=== PATIENT | female | born 1970 | race Caucasian/White ===

== ENCOUNTER 2025-08-06 11:21 | Inpatient (IN) ==
--- NOTE | 2025-08-06 12:27 | Emergency Department Note ---
Impression & Plan Palpitation, Dysrhythmia, Fatigue, Lightheadedness ED Provider Note ED Provider Note NAME: BEATA MARTIN AGE:55 SEX: Female : 1970 ARRIVES VIA: EMS INFORMANT: Patient ED PROVIDER(s): Kavitha Field DO CHIEF COMPLAINT: Palpitations, weakness HPI: This is a 55-year-old female who presents to the emergency department due to concern for palpitations. Patient states around 9:00 this morning she was seated and reading a book and she began with weakness, lightheadedness, and a sense of palpitations. Patient states she has not felt well since being given steroids 2 weeks ago by orthopedics due to some ongoing issues in her left upper extremity. Patient with significant cardiac history. EMS reported variable heart rate improved including as low as 38. PAST MEDICAL HISTORY:See Below PAST SURGICAL HISTORY:See Below FAMILY HISTORY:See Below SOCIAL HISTORY:See Below HOME MEDICATIONS:See Below ALLERGIES:See Below VITALS:See Below PHYSICAL EXAMINATION: GENERAL: alert, unwell appearing, well nourished, no distress, non-toxic EYE EXAM: normal conjunctiva, PERRL and EOM's grossly intact OROPHARYNX: no exudate, no erythema, lips, buccal mucosa, and tongue normal and mucous membranes are moist NECK: supple, no nuchal rigidity, no adenopathy, non-tender LUNGS: Clear to auscultation. Normal chest wall mechanics, no w/r/r HEART: no murmurs, S1 normal and S2 normal, well-healed midline sternotomy scar ABDOMEN: abdomen soft, non-tender, normo-active bowel sounds, no masses, no rebound or guarding. SKIN: no rashes, petechiae, orbruising UPPER EXTREMITIES: upper extremities are grossly normal. FROM, nml pulses b/l. LOWER EXTREMITIES: No pitting edema. FROM, nml pulses b/l. NEURO EXAM: Normal sensorium, cranial nerves II-XII grossly intact, normal speech, no facial droop,nogross weakness of arms, no gross weakness of legs. Gross sensation intact. No ataxia. Vital Signs: reviewed and remarkable Differential Diagnosis: Dysrhythmia, PVCs, PACs, electrolyte abnormality, thyroid storm, ACS, PE, dehydration, anxiety, medication ADR, occult infection, as well as others were considered MEDICAL DECISION MAKIN-year-old female who presents to the emergency department due to concern for palpitations, lightheadedness, and fatigue. Patient noted by EMS to have variable heart rate including significant bradycardia. No hypotension and route. On arrival here patient is rhythm with stable vital signs. While initially discussing patient's symptoms, patient noted to drop her heart rate to 40 and what appeared to be a type II second-degree block. Patient with significant cardiac history. Labs drawn and sent, IV established, EKG and chest performed at bedside and interpreted by me and the patient was monitored on telemetry. Patient applied precaution due to coming bradycardia. Patient remained normotensive. She would become symptomatic with the bradycardia though. Case discussed with on-call [facility] cardiology. They did review patient's EKG and telemetry tracings. Patient's labs reassuring including therapeutic INR. Patient's TSH abnormal although she states that is not new. Upon review of prior cardiology note, there was some consideration that the thyroid dysfunction was secondary to her prior amiodarone use. Other than the recent steroids as prescribed by orthopedics, no other recent change in medications. Patient does take atenolol daily. Patient was noted to have a magnesium of 1.8, well within normal limits, she was given additional magnesium supplementation as a precaution. Patient had no other concerning dysrhythmias while monitored here. No evidence of infectious etiology. Case discussed with the hospitalist team for additional evaluation and management. Patient reevaluated multiple times, multiple EKGs obtained and reviewed by me at bedside additionally due to concerning rate and rhythm changes. Consultation(s): 1235: Discussed with Dr. Sunshine, cardiology, who reviewed her tele tracings and prior history. 1433: Discussed with [facility] hospitalist team, for further evaluation and mgmt. ER Treatment Provided: See below Diagnostics Interpreted By Me: -ECG: Normal sinus rhythm at 80, normal axis, left bundle branch block, no acute ST/T wave changes -Cardiac Monitoring: An order was placed for continuous cardiac monitoring. The monitor shows a rate of 40 with bradycardic rhythm. -Laboratory studies: As stated above and show below. -Imaging studies: X-ray Chest: A single view study of the chest was reviewed and was negative for cardiomegaly, focal infiltrate, effusion, pulmonary edema, or wide mediastinum. Triage Nursing Note Reviewed Prior/Outside Records Reviewed -cardiology note with Dr. Anand from December 2024 reviewed Critical Care: Critical care of 48 min performed to assess and manage high likelihood of life-threatening dysrhythmia, involving labs and imaging performed with assessment to evaluate dysrhythmia and palpitations diagnosis with frequent reassessment. This time includes bedside time, treatment discussions with patient/family/consultants, documentation time and excludes procedure time. Past Med/Surg History Problem List (Updated 08/06/25 @ 18:51 by Kavitha Field DO) Lightheadedness (Acute) Fatigue (Acute) CHF (congestive heart failure) Valvular heart disease 2008 Mitral Valve Repair. 2016 Mitral Valve Replacement, Tricuspid Valve Ring Repair. 2019 Tricuspid Valve Replacement Symptomatic bradycardia Dysrhythmia (Acute) Palpitation (Acute) Anticoagulated (Acute) Failure of outpatient treatment (Acute) Dental infection (Acute Unknown) Cellulitis of face (Acute) Facial cellulitis Dental infection Medical History Encounter for pre-operative examination Valvular heart disease 2008 Mitral Valve Repair. 2016 Mitral Valve Replacement, Tricuspid Valve Ring Repair. 2019 Tricuspid Valve Replacement Restrictive lung disease Pulmonary hypertension PTSD (post-traumatic stress disorder) HTN (hypertension) Anxiety Nonalcoholic fatty liver disease Diaphragmatic paralysis Chronic insomnia CHF (congestive heart failure) Surgical History History of incision and drainage (04/05/25) Right Jaw Incision and Drainage - Jamie Villafana, DMD Extraction Tooth #28 - Jamie Villafana, DMD H/O mitral valve repair H/O tricuspid valve replacement H/O mitral valve replacement Social History Smoking Status: Never smoker Hx Alcohol Use: Yes Alcohol type: other Hx Substance Use: No Preferred Language: Romansh Communication Ability: Effective Supervisor [place] [employer] [place] Required: No Beliefs That Will Affect Care: None Current Living Situation: Spouse and Family current occupation: Disability Feels Safe at Home: Yes Safety Concerns: Feels Safe At This Time Assistive Devices: None Allergies Allergies Allergy/AdvReac Type Severity Reaction Status Date / Time levofloxacin [From Levaquin] Allergy Severe Anaphylaxis Verified 05/10/25 16:22 heparin AdvReac Severe HIGH Verified 05/10/25 16:22 DOSES---COMA doxycycline AdvReac Intermediate CAUSED Verified 05/10/25 16:22 ULCER TO BLEED tizanidine AdvReac Intermediate HALLUCINATI Verified 05/10/25 16:22 ONS fentanyl AdvReac Unknown "DID NOT Verified 05/10/25 16:22 WORK" midazolam [From Versed] AdvReac Unknown "DID NOT Verified 05/10/25 16:22 WORK" ketorolac [From Toradol] AdvReac Abdominal Verified 05/10/25 16:22 Pain Home Meds Home Medications Medication Instructions Recorded Confirmed alprazolam 1 mg tablet 1 mg PO BID PRN Anxiety 04/02/25 08/06/25 atenolol 50 mg tablet 75 mg PO DAILY 04/02/25 08/06/25 estradiol 2 mg tablet 2 mg PO DAILY 04/02/25 08/06/25 furosemide 20 mg tablet 20 mg PO DAILY 04/02/25 08/06/25 losartan 25 mg tablet 0 mg PO DAILY 04/02/25 08/06/25 meclizine 25 mg tablet 25 mg PO BID PRN Dizziness Or 04/02/25 08/06/25 Vertigo pantoprazole 40 mg tablet,delayed 40 mg PO DAILY 04/02/25 08/06/25 release ranolazine 500 mg tablet,extended 500 mg PO BID 04/02/25 08/06/25 release,12 hr spironolactone 25 mg tablet 50 mg PO DAILY 04/02/25 08/06/25 warfarin 2.5 mg tablet 2.5 mg PO HS 04/02/25 08/06/25 zolpidem 5 mg tablet 5 mg PO HS 04/02/25 08/06/25 ferrous sulfate 325 mg (65 mg 325 mg PO DAILY 05/10/25 08/06/25 iron) tablet,delayed release multivitamin 1 tab PO DAILY 05/10/25 08/06/25 levothyroxine 25 mcg tablet 25 mcg PO DAILY 08/06/25 08/06/25 (Euthyrox) Previous Rx's Medication Instructions Recorded naloxone 4 mg/actuation nasal 1 spray intranasal ONCE #2 ea 04/09/25 spray (Narcan) promethazine 25 mg tablet 25 mg PO TID PRN nausea and 05/10/25 vomiting #9 tabs Results & Data (ED) Vital Signs Vital Signs - 24 hr 08/06/25 11:34 08/06/25 11:34 08/06/25 11:45 Temperature 36.7 C Temperature Source Oral Pulse Rate 47 L 69 Pulse Rate [Apical] Pulse Rate from SpO2 Sensor 78 Pulse Rhythm Irregular Respiratory Rate 12 Blood Pressure 128/50 L Blood Pressure [Right Arm] Blood Pressure Mean 76 Blood Pressure Mean [Right Arm] Pulse Oximetry 96 96 Oxygen Delivery Method Room Air Room Air Room Air Sepsis New/Unexplained Change in Mental Status No Sepsis Action Taken by Nursing No Action Required 08/06/25 11:55 08/06/25 12:00 08/06/25 12:02 Temperature Temperature Source Pulse Rate 40 L Pulse Rate [Apical] Pulse Rate from SpO2 Sensor Pulse Rhythm Respiratory Rate Blood Pressure 111/62 Blood Pressure [Right Arm] Blood Pressure Mean 72 Blood Pressure Mean [Right Arm] Pulse Oximetry Oxygen Delivery Method Room Air Sepsis New/Unexplained Change in Mental Status Sepsis Action Taken by Nursing 08/06/25 12:03 08/06/25 12:32 08/06/25 12:42 Temperature Temperature Source Pulse Rate 40 L 40 L Pulse Rate [Apical] 40 L Pulse Rate from SpO2 Sensor Pulse Rhythm Respiratory Rate 15 12 Blood Pressure Blood Pressure [Right Arm] 130/62 Blood Pressure Mean Blood Pressure Mean [Right Arm] 84 Pulse Oximetry Oxygen Delivery Method Room Air Sepsis New/Unexplained Change in Mental Status Sepsis Action Taken by Nursing 08/06/25 13:00 08/06/25 13:01 08/06/25 13:12 Temperature Temperature Source Pulse Rate 40 L 79 Pulse Rate [Apical] Pulse Rate from SpO2 Sensor Pulse Rhythm Respiratory Rate 12 14 Blood Pressure 126/47 L Blood Pressure [Right Arm] Blood Pressure Mean 69 Blood Pressure Mean [Right Arm] Pulse Oximetry Oxygen Delivery Method Sepsis New/Unexplained Change in Mental Status Sepsis Action Taken by Nursing 08/06/25 13:31 08/06/25 14:00 08/06/25 14:00 Temperature Temperature Source Pulse Rate 73 81 Pulse Rate [Apical] Pulse Rate from SpO2 Sensor Pulse Rhythm Respiratory Rate 18 14 Blood Pressure 118/66 126/53 L Blood Pressure [Right Arm] Blood Pressure Mean 97 89 Blood Pressure Mean [Right Arm] Pulse Oximetry Oxygen Delivery Method Room Air Sepsis New/Unexplained Change in Mental Status Sepsis Action Taken by Nursing 08/06/25 14:27 08/06/25 14:30 08/06/25 14:36 Temperature Temperature Source Pulse Rate 81 81 Pulse Rate [Apical] Pulse Rate from SpO2 Sensor Pulse Rhythm Respiratory Rate 15 13 Blood Pressure 105/58 L Blood Pressure [Right Arm] Blood Pressure Mean 84 Blood Pressure Mean [Right Arm] Pulse Oximetry Oxygen Delivery Method Sepsis New/Unexplained Change in Mental Status Sepsis Action Taken by Nursing 08/06/25 15:00 08/06/25 15:00 Temperature Temperature Source Pulse Rate 80 Pulse Rate [Apical] Pulse Rate from SpO2 Sensor Pulse Rhythm Respiratory Rate 29 H Blood Pressure 137/71 Blood Pressure [Right Arm] Blood Pressure Mean 108 Blood Pressure Mean [Right Arm] Pulse Oximetry Oxygen Delivery Method Sepsis New/Unexplained Change in Mental Status Sepsis Action Taken by Nursing Laboratory Data 08/06/25 12:38 08/06/25 12:38 Lab Results 08/06/25 08/06/25 Range/Units 12:38 13:45 WBC 5.78 (4.8-10.8) K/ul RBC 3.55 L (4.20-5.40) M/uL Hgb 11.0 L (12.0-16.0) g/dl Hct 33.1 L (37.0-47.0) % MCV 93.2 (80.0-100.0) fL MCH 31.0 (25.0-34.0) pg MCHC 33.2 (32.0-36.0) g/dL RDW Std Deviation 52.4 H (36.4-46.3) fL RDW Coeff of Ankit 15.3 H (11.5-14.5) % Plt Count 291 (130-400) K/uL MPV 11.0 (9.4-12.4) fL Immature Gran % (Auto) 0.3 % Neut % (Auto) 55.6 % Lymph % (Auto) 32.7 % [place] % (Auto) 7.4 % Eos % (Auto) 3.1 % Baso % (Auto) 0.9 % Neut # (Auto) 3.21 (1.40-6.50) K/uL Lymph # (Auto) 1.89 (1.20-3.40) K/uL [place]iken # (Auto) 0.43 (0.11-0.59) K/uL Eos # (Auto) 0.18 (0.00-0.50) K/uL Baso # (Auto) 0.05 (0.00-0.20) K/uL Immature Gran # (Auto) 0.02 (0.01-0.20) K/uL PT 26.3 H (9.0-12.0) Seconds INR 2.6 H (0.9-1.1) Sodium 138 (136-145) mmol/L Potassium 4.3 (3.5-5.1) mmol/L Chloride 106 (98-107) mmol/L Carbon Dioxide 27 (21-32) mmol/L Anion Gap 5 (3-11) BUN 17 (6-23) mg/dl Creatinine 0.84 (0.6-1.2) mg/dl Est Cr Clr Drug Dosing 76.1 ml/min eGFR 82.01 BUN/Creatinine Ratio 20.2 H (10-20) Glucose 100 H (70-99(Fasting)) mg/dl Calcium 8.9 (8.6-10.3) mg/dl Magnesium 1.8 (1.7-2.4) mg/dl Total Bilirubin 0.5 (0.2-1.0) mg/dl AST 17 (13-39) U/L ALT 12 (7-52) U/L Alkaline Phosphatase 121 H (34-104) U/L Troponin I High Sens 7.9 (0-14) pg/ml B-Natriuretic Peptide 116 H (0-100) pg/ml Total Protein 6.8 (6.0-8.3) gm/dl Albumin 3.7 (3.4-5.0) gm/dl Globulin 3.1 (2.5-4.0) gm/dl Albumin/Globulin Ratio 1.2 (0.9-2) Lipase 32 (11-82) U/L TSH 24.666 H (0.300-4.500) uIu/ml Free T4 0.61 (0.61-1.60) ng/dl Urine Color Dark Yellow Urine Appearance Cloudy A (Clear) Urine pH 6.0 (4.5-7.5) Ur Specific [place] 1.027 (1.000-1.030) Urine Protein Trace H (Negative) Urine Glucose (UA) Negative (Negative) Urine Ketones Trace H (Negative) Urine Blood Negative (Negative) Urine Nitrite Negative (Negative) Urine Bilirubin 1+ H (Negative) Urine Urobilinogen Negative (Negative) Ur Leukocyte Esterase 1+ H (Negative) Urine WBC (Auto) 6-10 H (0-5) /hpf Urine RBC (Auto) 0-2 (0-2) /hpf U Hyaline Cast (Auto) 0-2 (0-2) /lpf U Epithel Cells (Auto) >20 H (0-2) /hpf Urine Bacteria (Auto) 4+ H (None Seen) Urine Comment Anaplasma Smear See Comment Babesia Smear See Comment Lyme Disease Screen Negative (Negative) Administered Medications Discontinued Medications Alprazolam (Alprazolam 0.5 Mg Tablet) 1 mg PO NOW STA Stop: 08/06/25 14:30 Last Admin: 08/06/25 14:43 Dose: 1 mg Documented By: CHELSIE Magnesium Sulfate/Dextrose (Magnesium Sulfate / D5w) 1 gm in 100 mls @ 100 mls/hr IV NOW STA Stop: 08/06/25 14:28 Last Infusion: 08/06/25 14:43 Dose: Infused Documented By: Admin: 08/06/25 13:43 Dose: 100 mls/hr Documented By: CHELSIE Imaging Data Radiologist's Impression: Chest X-Ray 08/06/25 11:45 Clinical History: Chest pain Technique: A frontal view of the chest was obtained Comparison is made to the prior examination dated 04/02/2025 Findings: There are no confluent pulmonary infiltrates. The heart size is within normal limits. No pleural effusion or pneumothorax is seen. There is no definite pulmonary nodule. No fracture is noted. Sternal wires are present Impression: No active disease Electronically signed by Ko Givens 08-06-2025 12:53 PM Discharge Plan Visit Data Chief Complaint: Cardiac Assessment Stated Complaint: BRADYCARDIA, WEAK, DIZZY, LIGHTHEADED ED Provider: Kavitha Field Discharge Problem: Palpitation, Dysrhythmia, Fatigue, Lightheadedness Patient Disposition: Admitted As Inpatient Condition: Fair Discharge Instructions Interventions: ED Discharge Assessment Last Done: 08/06/25 16:02
--- NOTE | 2025-08-06 12:54 | XRay Report ---
Clinical History: Chest pain Technique: A frontal view of the chest was obtained Comparison is made to the prior examination dated 04/02/2025 Findings: There are no confluent pulmonary infiltrates. The heart size is within normal limits. No pleural effusion or pneumothorax is seen. There is no definite pulmonary nodule. No fracture is noted. Sternal wires are present Impression: No active disease Electronically signed by Ko Givens 08-06-2025 12:53 PM
[2025-08-06 12:55] LABS: Hematocrit (blood only) 33.1 % (37.0-47.0); Hemoglobin 11.0 g/dl (12.0-16.0); Immature Granulocytes # (auto) 0.02 K/uL (0.01-0.20); Immature Granulocytes % (auto) 0.3 %; Mean Corpuscular Hemoglobin 31.0 pg (25.0-34.0); Mean Corpuscular Volume 93.2 fL (80.0-100.0); Platelet Count 291 K/uL (130-400); RDW Standard Deviation 52.4 fL (36.4-46.3); Red Blood Count 3.55 M/uL (4.20-5.40); White Blood Count 5.78 K/ul (4.8-10.8)
[2025-08-06 13:14] LABS: Alanine Aminotransferase 12.0 U/L (7-52); Albumin Globulin Ratio 1.2 (0.9-2); Alkaline Phosphatase 121.0 U/L (34-104); Anion Gap 5.0 (3-11); Bilirubin,Total 0.5 mg/dl (0.2-1.0); Blood Urea Nitrogen 17.0 mg/dl (6-23); Calcium 8.9 mg/dl (8.6-10.3); Carbon Dioxide 27.0 mmol/L (21-32); Chloride 106.0 mmol/L (98-107); Creatinine Clr Calc Pharmacy 76.1 ml/min; Globulin 3.1 gm/dl (2.5-4.0); Glucose 100.0 mg/dl (70-99(Fasting)); Lipase 32.0 U/L (11-82); Magnesium 1.8 mg/dl (1.7-2.4); Potassium 4.3 mmol/L (3.5-5.1); Sodium 138.0 mmol/L (136-145); Total Protein 6.8 gm/dl (6.0-8.3)
[2025-08-06 13:25] LABS: INR 2.6 (0.9-1.1); Prothrombin Time 26.3 Seconds (9.0-12.0)
[2025-08-06 13:30] LABS: Thyroid Stimulating Hormone 24.666 uIu/ml (0.300-4.500)
[2025-08-06] MEDS: MAGNESIUM SULFATE / D5W 1 GM/100 ML BAG IV STA (13:43)
--- NOTE | 2025-08-06 14:17 | History & Physical Report ---
Date of Service August 06, 2025 Assessment & Plan (1) Symptomatic bradycardia: (2) Valvular heart disease: (3) CHF (congestive heart failure): Plan This patient is a 55-year-old female with PMH of CHF, valvular heart disease and restrictive lung disease who presented on 08/06 after developing symptomatic bradycardia. #Symptomatic bradycardia No leukocytosis; afebrile Lyme negative on arrival; anaplasmosis and babesiosis pending Hold atenolol for washout External pacers at bedside Magnesium sulfate 1 g IV x 1 Keep mag >2, K >4 Cardiology consult appreciated Will make patient n.p.o. at midnight in the event that she requires a pacemaker Atropine 1 mg IV q5m PRN for symptomatic bradycardia (3 max doses) Communication order for nursing staff: Do not give atropine before contacting medical provider #Valvular Heart Disease Dyspnea at baseline due to prematurity, RLD, congenital heart anomalies Hx of mitral and tricuspid valve replacements now on Warfarin INR at 2.6 on arrival (goal range 2.5-3.5) Continue warfarin daily Trend PT/INR #HFpEF No echocardiogram on file However, review of cardiology report from December 2024 reported the following: " Previously followed with cardiology in [place]" "Had a right and left heart catheterization in [facility] in 2019 prior to her tricuspid valve replacement" "Ejection action was 60% at that time" "Echo we did this past week shows a severely narrowed LV outflow tract due to upper septum which measures approximately 1.5 cm and protrudes into the LV outflow tract BNP mildly elevated at 116 on arrival (most recently 213 in August 17) CXR without signs of active disease Limited echocardiogram ordered, pending Continue spironolactone, Lasix, losartan, and ranolazine Strict I&O monitoring Daily weights #Asymptomatic bacteria UA positive on arrival with 4+ bacteria >20 epithelial cells; ? Contaminated Clinically, patient denies burning with urination, dysuria, or any urinary symptoms Will defer antibiotics at this time Follow UCx #Hypothyroidism TSH elevated at 24 on arrival, low normal free T4 Thought to be secondary to recent amiodarone use leading to thyroid dysfunction Amiodarone has since been discontinued Continue levothyroxine #Insomnia | PTSD Continue zolpidem HS Disposition: Admit to PCU telemetry VTE PPx: SCDs; will hold chemical DVT PPx in the event that patient requires a pacemaker History of Present Illness Chief Complaint: Cardiac assessment, symptomatic bradycardia Primary Care Provider: Casie Link PA-C Mrs. Hancock is a 55-year-old female with PMH of valvular heart disease (on warfarin), pulmonary hypertension, CHF, restrictive lung disease, NAFLD, insomnia, and PTSD. Extensive cardiac history including valvular surgeries completed in [place] and most recently in November 2024 at the [facility]. She presented on 08/06 after feeling intermittent chest palpitations followed by lightheadedness while at rest around 0900 this morning. When she checked her home pulse ox, it was reportedly 38 bpm. While she has had intermittent episodes of decreased energy over the past 2 weeks, this is the lowest her heart rate has been. Patient denies prior history of ID or diabetes. While she denies history of stroke, she does report history of "small hemorrhages" in her brain secondary to her heart. Patient did not take her regular morning medications today. The only recent change in medication is that she was started on a Medrol Dosepak 2 weeks ago for her left shoulder pain. She believes that the Medrol Dosepak is the primary cause of her symptoms, as it has messed up her INR, and her heart rate has felt abnormal ever since starting it. No sick contacts to her knowledge. No rashes or tick bites to her knowledge. Patient follows with Dr. Downing ([facility]) as an outpatient. Patient's vitals are stable at time of admission. ED course: Magnesium sulfate 1 g IV x 1 Xanax 1 mg p.o. ROS: Patient endorses night sweats, intermittent chest palpitations, decreased energy, SOB (patient reports she has "no energy" to breathing when her heart rate is low), dry cough, intermittent numbness and tingling in the left hand, and left-sided shoulder pain radiating down to the hand. Patient denies fevers chest pain, chest palpitations, N/V/D, burning with urination, blood in your stool, or changes in urinary/bowel habits. Allergies Allergy/AdvReac Type Severity Reaction Status Date / Time levofloxacin [From Levaquin] Allergy Severe Anaphylaxis Verified 05/10/25 16:22 heparin AdvReac Severe HIGH Verified 05/10/25 16:22 DOSES---COMA doxycycline AdvReac Intermediate CAUSED Verified 05/10/25 16:22 ULCER TO BLEED tizanidine AdvReac Intermediate HALLUCINATI Verified 05/10/25 16:22 ONS fentanyl AdvReac Unknown "DID NOT Verified 05/10/25 16:22 WORK" midazolam [From Versed] AdvReac Unknown "DID NOT Verified 05/10/25 16:22 WORK" ketorolac [From Toradol] AdvReac Abdominal Verified 05/10/25 16:22 Pain Home Medications Medication Instructions Recorded Confirmed Type alprazolam 1 mg tablet 1 mg PO BID PRN Anxiety 04/02/25 08/06/25 History estradiol 2 mg tablet 2 mg PO DAILY 04/02/25 08/06/25 History furosemide 20 mg tablet 20 mg PO DAILY 04/02/25 08/06/25 History meclizine 25 mg tablet 25 mg PO BID PRN Dizziness Or 04/02/25 08/06/25 History Vertigo pantoprazole 40 mg tablet,delayed 40 mg PO DAILY 04/02/25 08/06/25 History release spironolactone 25 mg tablet 50 mg PO DAILY 04/02/25 08/06/25 History warfarin 2.5 mg tablet 2.5 mg PO HS 04/02/25 08/06/25 History zolpidem 5 mg tablet 5 mg PO HS 04/02/25 08/06/25 History naloxone 4 mg/actuation nasal 1 spray intranasal ONCE #2 ea 04/09/25 08/06/25 Rx spray (Narcan) multivitamin 1 tab PO DAILY 05/10/25 08/06/25 History promethazine 25 mg tablet 25 mg PO TID PRN nausea and 05/10/25 08/06/25 Rx vomiting #9 tabs levothyroxine 25 mcg tablet 25 mcg PO DAILY 08/06/25 08/06/25 History (Euthyrox) baclofen 5 mg tablet 5 mg PO Q8H PRN muscle 08/09/25 Rx spasm/muscle pain #14 tabs cyanocobalamin (vitamin B-12) 1,000 mcg PO DAILY #90 tabs 08/09/25 Rx 1,000 mcg tablet losartan 25 mg tablet 25 mg PO DAILY #0 tabs 08/09/25 08/06/25 Rx Past Med/Surg History Problem List (Updated 08/09/25 @ 07:54 by Livier Downing, DO) LBBB (left bundle branch block) Hypothyroidism Left arm pain Anemia Atrial flutter Atrial tachycardia AVB (atrioventricular block) Lightheadedness (Acute) Fatigue (Acute) CHF (congestive heart failure) Valvular heart disease 2008 Mitral Valve Repair. 2016 Mitral Valve Replacement, Tricuspid Valve Ring Repair. 2019 Tricuspid Valve Replacement Symptomatic bradycardia Dysrhythmia (Acute) Palpitation (Acute) Anticoagulated (Acute) Failure of outpatient treatment (Acute) Dental infection (Acute Unknown) Cellulitis of face (Acute) Facial cellulitis Dental infection Medical History Encounter for pre-operative examination Restrictive lung disease Pulmonary hypertension PTSD (post-traumatic stress disorder) HTN (hypertension) Anxiety Nonalcoholic fatty liver disease Diaphragmatic paralysis Chronic insomnia Surgical History History of incision and drainage (04/05/25) Right Jaw Incision and Drainage - Jamie Villafana DMD Extraction Tooth #28 - Jamie Villafana DMD H/O mitral valve repair H/O tricuspid valve replacement H/O mitral valve replacement Social History Smoking Status: Never smoker Hx Alcohol Use: Yes Alcohol type: other Hx Substance Use: No Preferred Language: Tajik Communication Ability: Effective Outlet Manager Required: No Beliefs That Will Affect Care: None Current Living Situation: Spouse and Family current occupation: Disability Feels Safe at Home: Yes Assistive Devices: Cane, Wheelchair and Other Review of Systems 2 Review of Systems: See HPI above Physical Exam 2 Physical Exam: General: no acute distress; anxious; at bedside; non-toxic appearing; well-nourished; cooperative; SpO2 96% on RA HEENT: normocephalic, atraumatic; no scleral icterus; PERRLA w/ EOMs intact; vision and hearing grossly intact Neck: supple; no lymphadenopathy; trachea midline Skin: No rashes or tick bites appreciated on the abdomen or flanks bilaterally; warm, dry without signs of tenting; no cyanosis; no bruising, lesions, or erythema noted CV: chest wall NTP; RRR at 80 bpm; mitral valve click appreciated; pulses intact and symmetric at radial, DP, and PT Lungs: no acute respiratory distress; symmetrical chest wall expansion; clear breath sounds across all lung maxwell w/o adventitious sounds; no wheezing ABD: Soft, NTP; BS present; no rebound/guarding; no distention MSK: no tics or fasciculations; no edema noted in the LEs b/l, nonerythematous Neuro: A&Ox3; normal mood and affect; fluent speech; no focal deficits; sensation grossly intact in the LEs b/l Results & Data Results & Data Vital Signs (Past 12 Hours) Vital Signs Temp Pulse Pulse Resp BP BP Pulse Ox 08/06/25 14:00 126/53 L 08/06/25 14:00 81 14 08/06/25 13:31 73 18 118/66 08/06/25 13:12 79 14 08/06/25 13:01 126/47 L 08/06/25 13:00 40 L 12 08/06/25 12:42 40 L 12 08/06/25 12:32 40 L 15 130/62 08/06/25 12:03 40 L 08/06/25 12:02 40 L 08/06/25 12:00 111/62 08/06/25 11:55 08/06/25 11:45 69 96 08/06/25 11:34 08/06/25 11:34 36.7 C 47 L 12 128/50 L 96 O2 Del Method 08/06/25 14:00 08/06/25 14:00 08/06/25 13:31 Room Air 08/06/25 13:12 08/06/25 13:01 08/06/25 13:00 08/06/25 12:42 08/06/25 12:32 Room Air 08/06/25 12:03 08/06/25 12:02 08/06/25 12:00 08/06/25 11:55 Room Air 08/06/25 11:45 Room Air 08/06/25 11:34 Room Air 08/06/25 11:34 Room Air Laboratory Results Abnormal lab results 08/06/25 Range/Units 12:38 RBC 3.55 L (4.20-5.40) M/uL Hgb 11.0 L (12.0-16.0) g/dl Hct 33.1 L (37.0-47.0) % RDW Std Deviation 52.4 H (36.4-46.3) fL RDW Coeff of Ankit 15.3 H (11.5-14.5) % PT 26.3 H (9.0-12.0) Seconds INR 2.6 H (0.9-1.1) BUN/Creatinine Ratio 20.2 H (10-20) Glucose 100 H (70-99(Fasting)) mg/dl Alkaline Phosphatase 121 H (34-104) U/L B-Natriuretic Peptide 116 H (0-100) pg/ml TSH 24.666 H (0.300-4.500) uIu/ml Diagnostic Findings Chest X-Ray 08/06/25 11:45 Clinical History: Chest pain Technique: A frontal view of the chest was obtained Comparison is made to the prior examination dated 04/02/2025 Findings: There are no confluent pulmonary infiltrates. The heart size is within normal limits. No pleural effusion or pneumothorax is seen. There is no definite pulmonary nodule. No fracture is noted. Sternal wires are present Impression: No active disease Electronically signed by Ko Givens 08-06-2025 12:53 PM ECG Additional Comments: ECG revealed undetermined rhythm at 60 bpm; QTc 504 (caution use of QT prolonging agents); LBBB which was present on prior EKGs ECG and route revealed undetermined rhythm at 39 bpm (see photo below) Code Status & VTE Plan Code Status DNR/DNI (discussed with patient and patient's at bedside; patient would not want to be indicated under any circumstances; while she is okay having her heart shocked if she goes into an irregular rhythm, she would not want resuscitation in the event of cardiac arrest; no mechanical ventilation under any circumstance) VTE Prophylaxis Plan VTE Prophylaxis will be ordered: Yes Supervising Physician Co-Signing Physician Notes Attending Attestation & Admit Note: Pt seen & examined, chart reviewed, admit care plan d/w YURY Rg. I agree w/ the alvarenga components of his admission documentation. 55yo female with h/o valvular heart disease (TV and MV replacements - latter mechanical, on coumadin), pulmonary hypertension, restrictive lung disease, NAFLD, insomnia, and PTSD. Has had 4 cardiac surgeries including valvular surgeries in [place] and most recently in November 2024 at the [facility]. Presented with intermittent chest palpitations followed by lightheadedness the am of admission. When she checked her home pulse ox it showed a HR of 38 BPM. EMS was summoned to her home and she was brought to [facility]. EKG done by EMS and heart rhythm upon ER presentation appeared to show junctional rhythm at rate of 40 BPM. By the time I saw her on the telemetry floor her HR had risen to the low 80s and it appeared to be aflutter. She reported feeling better after having received IV magnesium in the ER. PMH/PSH/allergies/meds/sochx - reviewed VSS, afebrile gen - lying comfortably in bed, NAD neck - no JVD mouth - MMM heart - regular rate, s1 s2, mechanical valve closure sound, no murmur lungs - CTA b/l abd - soft NT ND BS+ ext - warm, pulses 2+ b/l feet, no edema psych - a/o x 3 labs reviewed troponin negative CXR negative EKG - aflutter with variable block, LBBB TSH elevated at 24, FT4 0.6 INR 2.6 A/P: 1. symptomatic bradycardia 2nd to junctional rhythm 2. aflutter 3. valvular heart disease - s/p mechanical MV, s/p bioprosthetic TV 4. chronic LBBB 5. hypothyroidism - likely due to previous amiodarone usage 6. chronic coumadin use for mechanical MV 7. chronic fatigue -hold atenolol -strongly encouraged to take synthroid replacement -TSH has worsened in the last several months -consult cardiology, Dr Stone; I sent him a photo of the EKG done by EMS; need for pacer given the junctional rhythm? -cont coumadin; daily INR Juliano Cha MD PG Care Time/CCT Total # of Minutes Spent Total Time Spent with Patient: Total time spent is greater than 50% in coordination of care (as documented) at patient's floor/unit and/or counseling patient: C[place] [address] INT INP/OBS CARE 3/75MIN Patient Type Established Medical Decision Making High Complexity Diagnoses Symptomatic bradycardia R00.1 Valvular heart disease I38 CHF (congestive heart failure) I50.9
[2025-08-06 14:22] LABS: Appearance Urine Cloudy (Clear); Bacteria Urine Automated 4+ (None Seen); Cast Urine Automated 0-2 /lpf (0-2); Epithelial Cell Urine Auto >20 /hpf (0-2); Glucose Urine UA Negative (Negative); RBC Urine Automated 0-2 /hpf (0-2)
[2025-08-06] MEDS ORDERED: MELATONIN 3 MG TAB PO PRN (17:31)
[2025-08-06] MEDS ORDERED: ATROPINE SO4 1 MG/ML 1ML VIAL IV PRN (17:31)
[2025-08-06] MEDS ORDERED: PROMETHAZINE HCL 25 MG TAB PO PRN (17:31)
[2025-08-06] MEDS ORDERED: MECLIZINE HCL 25 MG TAB PO PRN (17:31)
[2025-08-06] MEDS: RANOLAZINE 500 MG ER TAB PO SCH (20:13)
[2025-08-06] MEDS: WARFARIN SOD 2.5 MG TAB PO SCH (20:13)
[2025-08-06] MEDS: ZOLPIDEM TARTRATE 5 MG TAB PO SCH (20:13)
[2025-08-07] MEDS: LEVOTHYROXINE SODIUM 25 MCG TABLET PO SCH (05:27)
--- NOTE | 2025-08-07 07:17 | Hospitalist Progress Note ---
Date of Service August 07, 2025 Assessment & Plan (1) Symptomatic bradycardia: (2) Valvular heart disease: (3) CHF (congestive heart failure): Plan This patient is a 55-year-old female with PMH of CHF, valvular heart disease and restrictive lung disease who presented on 08/06 after developing symptomatic bradycardia. #Symptomatic bradycardia No leukocytosis; afebrile Lyme negative on arrival; anaplasmosis and babesiosis pending Hold atenolol for washout External pacers at bedside Magnesium sulfate 1 g IV x 1 Keep mag >2, K >4 Cardiology consult appreciated Will make patient n.p.o. at midnight in the event that she requires a pacemaker Atropine 1 mg IV q5m PRN for symptomatic bradycardia (3 max doses) Communication order for nursing staff: Do not give atropine before contacting medical provider #Valvular Heart Disease Dyspnea at baseline due to prematurity, RLD, congenital heart anomalies Hx of mitral and tricuspid valve replacements now on Warfarin INR at 2.6 on arrival (goal range 2.5-3.5) Continue warfarin daily Trend PT/INR #HFpEF No echocardiogram on file However, review of cardiology report from December 2024 reported the following: " Previously followed with cardiology in [place]" "Had a right and left heart catheterization in [facility] in 2019 prior to her tricuspid valve replacement" "Ejection action was 60% at that time" "Echo we did this past week shows a severely narrowed LV outflow tract due to upper septum which measures approximately 1.5 cm and protrudes into the LV outflow tract BNP mildly elevated at 116 on arrival (most recently 213 in August 17) CXR without signs of active disease Limited echocardiogram ordered, pending Continue spironolactone, Lasix, losartan, and ranolazine Strict I&O monitoring Daily weights #Asymptomatic bacteria UA positive on arrival with 4+ bacteria >20 epithelial cells; ? Contaminated Clinically, patient denies burning with urination, dysuria, or any urinary symptoms Will defer antibiotics at this time Follow UCx #Hypothyroidism TSH elevated at 24 on arrival, low normal free T4 Thought to be secondary to recent amiodarone use leading to thyroid dysfunction Amiodarone has since been discontinued Continue levothyroxine #Insomnia | PTSD Continue zolpidem HS Disposition: Admit to PCU telemetry VTE PPx: SCDs; will hold chemical DVT PPx in the event that patient requires a pacemaker Admission and Anticipated Discharge Date Admission Date: August 06, 2025 Subjective Pt presents for symptomatic bradycardia. This morning, Review of Systems Review of Systems: As per HPI Physical Exam Physical Exam: General: no acute distress; anxious; at bedside; non-toxic appearing; well-nourished; cooperative; SpO2 96% on RA HEENT: normocephalic, atraumatic; no scleral icterus; PERRLA w/ EOMs intact; vision and hearing grossly intact Neck: supple; no lymphadenopathy; trachea midline Skin: No rashes or tick bites appreciated on the abdomen or flanks bilaterally; warm, dry without signs of tenting; no cyanosis; no bruising, lesions, or erythema noted CV: chest wall NTP; RRR at 80 bpm; mitral valve click appreciated; pulses intact and symmetric at radial, DP, and PT Lungs: no acute respiratory distress; symmetrical chest wall expansion; clear breath sounds across all lung maxwell w/o adventitious sounds; no wheezing ABD: Soft, NTP; BS present; no rebound/guarding; no distention MSK: no tics or fasciculations; no edema noted in the LEs b/l, nonerythematous Neuro: A&Ox3; normal mood and affect; fluent speech; no focal deficits; sensation grossly intact in the LEs b/l Results & Data Results & Data Vital Signs (Past 12 Hours) Vital Signs Temp Pulse Pulse Resp BP Pulse Ox O2 Del Method 08/07/25 02:56 36.4 C L 85 16 102/71 95 Room Air 08/06/25 23:17 36.7 C 85 18 120/74 98 Room Air 08/06/25 22:26 85 08/06/25 20:00 36.9 C 84 18 138/84 95 Room Air
[2025-08-07 07:54] LABS: Hematocrit (blood only) 32.6 % (37.0-47.0); Hemoglobin 10.7 g/dl (12.0-16.0); Immature Granulocytes # (auto) 0.02 K/uL (0.01-0.20); Immature Granulocytes % (auto) 0.4 %; Mean Corpuscular Hemoglobin 30.8 pg (25.0-34.0); Mean Corpuscular Volume 93.9 fL (80.0-100.0); Platelet Count 255 K/uL (130-400); RDW Standard Deviation 51.9 fL (36.4-46.3); Red Blood Count 3.47 M/uL (4.20-5.40); White Blood Count 4.90 K/ul (4.8-10.8)
[2025-08-07 08:28] LABS: Anion Gap 5.0 (3-11); Blood Urea Nitrogen 15.0 mg/dl (6-23); Calcium 8.8 mg/dl (8.6-10.3); Carbon Dioxide 27.0 mmol/L (21-32); Chloride 106.0 mmol/L (98-107); Creatinine Clr Calc Pharmacy 74.1 ml/min; Glucose 105.0 mg/dl (70-99(Fasting)); Magnesium 1.7 mg/dl (1.7-2.4); Potassium 4.1 mmol/L (3.5-5.1); Sodium 138.0 mmol/L (136-145)
[2025-08-07 08:37] LABS: INR 2.7 (0.9-1.1); Prothrombin Time 26.6 Seconds (9.0-12.0)
[2025-08-07] MEDS: FERROUS SULFATE 325 MG TAB PO SCH (08:59)
[2025-08-07] MEDS: FUROSEMIDE 20 MG TAB PO SCH (08:59)
[2025-08-07] MEDS: ACETAMINOPHEN 325 MG TAB PO PRN (09:03)
[2025-08-07] MEDS: LOSARTAN POTASSIUM 25 MG TAB PO SCH (09:04)
[2025-08-07] MEDS: SPIRONOLACTONE 25 MG TAB PO SCH (09:04)
--- NOTE | 2025-08-07 10:28 | Hospitalist Progress Note ---
"Date of Service August 07, 2025 Assessment & Plan (1) Symptomatic bradycardia: (2) Valvular heart disease: (3) CHF (congestive heart failure): Plan This patient is a 55-year-old female with PMH of CHF, valvular heart disease and restrictive lung disease who presented on 08/06 after developing symptomatic bradycardia. #Symptomatic bradycardia | junctional rhythm No leukocytosis; afebrile Lyme negative on arrival; anaplasmosis and babesiosis pending Hold atenolol for washout External pacers at bedside Magnesium sulfate 1 g IV x 2 Keep mag >2, K >4 Cardiology consult appreciated Complex cardiac history making placement of potential pacemaker difficult (history of prosthetic tricuspid valve) While a leadless pacer could be used, AV synchrony would be desirable Previously on amiodarone, but this has been discontinued ? Potential cardiac ablation Management deferred to patient's primary end frazer (Dr. Anand) Reached out to [facility], who will plan to see patient on 08/08 Atropine 1 mg IV q5m PRN for symptomatic bradycardia (3 max doses) Communication order for nursing staff: Do not give atropine before contacting medical provider Touch base with telemetry monitoring on 08/07; no recent evidence of heart rate dropping to <40bpm: Last resolved around 08/06 around 1400 #Valvular Heart Disease Dyspnea at baseline due to prematurity, RLD, congenital heart anomalies Hx of mitral and tricuspid valve replacements now on Warfarin Goal INR range: 2.5-3.5 Continue warfarin daily Trend PT/INR #HFpEF Limited echocardiogram ordered as no records readily available on date of admission Records later obtained on most recent echocardiogram on 04/25/2025: Normal LV size and function; no regional wall abnormalities; EF 60 to 65%; grade 1 diastolic dysfunction of the left ventricle; no gross evidence of MVR or TVR endocarditis BNP mildly elevated at 116 on arrival (most recently 213 in August 17) CXR without signs of active disease Continue spironolactone, Lasix, losartan, and ranolazine Strict I&O monitoring Daily weights #Asymptomatic bacteria UA positive on arrival with 4+ bacteria >20 epithelial cells; ? Contaminated Clinically, patient denies burning with urination, dysuria, or any urinary symptoms Will defer antibiotics at this time Follow UCx #Hypothyroidism TSH elevated at 24 on arrival, low normal free T4 Thought to be secondary to recent amiodarone use leading to thyroid dysfunction Amiodarone has since been discontinued Patient is cautious about starting levothyroxine; declines starting [place] Thyroid Would like to have a follow-up endocrinology appointment (scheduled for October) prior to starting any medications #Insomnia | PTSD Continue zolpidem HS Disposition: Continue stay on PCU telemetry VTE PPx: SCDs; will hold chemical DVT PPx in the event of cardiac intervention Admission and Anticipated Discharge Date Admission Date: August 06, 2025 Supervising Physician Co-Signing Physician Notes Attending Attestation - Chart reviewed, care plan d/w YURY Rg. I agree w/ the alvarenga components of his documentation. Appreciate cardiology consultation and recommendations for recent bradycardia event. Juliano Cha MD Subjective Mrs. Hancock is resting peacefully in bed this questioning. She reports no recurrence of lightheadedness or chest palpitations while she is been ambulating independently today. She took a shower earlier today, and reports no SOB with exertion. Her only complaint at this time is that she has pain rating down her left arm and numbness and tingling in her left fingertips (both of which are not new for her). We did discuss taking Synthroid for her hypothyroidism. Patient wants to follow-up with an shopping inspector in October for a full workup. She was previously on amiodarone, and he use of this injury likely led to thyroid dysfunction; thus, she is hesitant about starting any additional medications that might affect her thyroid. ROS: Patient endorses left shoulder/back, and numbness and tingling in the fingers. Patient denies chest pain, chest palpitations, episodes of lightheadedness, SOB at rest or with exertion, abdominal pain, N/V/D, or changes in urinary bowel habits. Review of Systems Review of Systems: See HPI above Physical Exam Physical Exam: General: no acute distress; resting peacefully in bed; non-toxic appearing; well-nourished; cooperative; SpO2 95% on RA HEENT: normocephalic, atraumatic; no scleral icterus; PERRLA; vision and hearing grossly intact Neck: supple; no lymphadenopathy; trachea midline Skin: No rashes or tick bites appreciated on the abdomen or flanks bilaterally; warm, dry without signs of tenting; no cyanosis; no bruising, lesions, or erythema noted CV: chest wall NTP; RRR at 80 bpm; mitral valve click appreciated; pulses intact and symmetric at radial, DP, and PT Lungs: no acute respiratory distress; symmetrical chest wall expansion; clear breath sounds across all lung maxwell w/o adventitious sounds; no wheezing ABD: Soft, NTP; BS present; no rebound/guarding; no distention MSK: no tics or fasciculations; no edema noted in the LEs b/l, nonerythematous Neuro: A&Ox3; normal mood and affect; fluent speech; no focal deficits; sensation intact and symmetric in lower extremity bilaterally assessed via light touch Results & Data Results & Data Vital Signs (Past 12 Hours) Vital Signs Temp Pulse Resp BP Pulse Ox O2 Del Method 08/07/25 07:46 36.5 C 86 18 113/74 96 Room Air 08/07/25 02:56 36.4 C L 85 16 102/71 95 Room Air 08/06/25 23:17 36.7 C 85 18 120/74 98 Room Air PG Care Time/CCT Total # of Minutes Spent Total Time Spent with Patient: Total time spent is greater than 50% in coordination of care (as documented) at patient's floor/unit and/or counseling patient: C[place] [address] SUB INP/OBS CARE 3/50MIN Patient Type Established Medical Decision Making High Complexity Diagnoses Symptomatic bradycardia R00.1 Valvular heart disease I38 CHF (congestive heart failure) I50.9"
--- NOTE | 2025-08-07 10:49 | Cardiology Consultation ---
Date of Consultation August 07, 2025 Assessment & Plan (1) Lightheadedness: (2) Atrial tachycardia: (3) AVB (atrioventricular block): (4) Valvular heart disease: Plan 1. Lightheadedness and fatigue: This is almost certainly due to a junctional rhythm at 40 bpm. That has resolved with resolution of the slow heart rate, I believe due to metabolism of her beta-heriberto although the patient and her tell me it was due to receiving magnesium. 2. Atrial tachycardia/atrial flutter: This is likely a reentrant atrial rhythm, therefore technically might be an atrial flutter, possibly around an atriotomy scar and quite consistent since presenting here. She has developed this arrhythmia sometime over the last several months, it was not present in March 2025 on electrocardiography. She may have had an electrocardiogram done in May at an office visit but I have not seen that. By her description I suspect it might have started when she started her steroids which might have been about 3 weeks ago although I do not know precisely and I believe has continued since then. It is still present but the AV conduction is variable, currently without amiodarone or beta-blockade it is 2-1. It sounds as though the amiodarone may have been started for a similar arrhythmia in the past. She is no longer on any AV trell blocking medications which is potentially worrisome since she could conduct one-to-one perhaps with activity. This would possibly be amenable to ablation although it can be difficult. 3. AV block: She presents with some type of AV block which could be high-grade AV block or complete heart block with a junctional escape rhythm. The junctional escape rhythm appears to be stable, it has the same morphology as her sinus rhythm suggesting that the block is AV trell not His-Purkinje in nature. As such it may not be related to her prior valve surgery although that is conceivable. It may be of recent onset, based on symptoms, although the atrial tachycardia could potentially exacerbate this finding. She is on atenolol, I had recommended discontinuing that on presentation and she is no longer on any AV trell blocking medications and it has resolved based on telemetry consistent with metabolism of the drug. At this point I do not think I would put in a pacemaker although if medications are needed to control her atrial arrhythmia we may be forced to do that. There is a potential difficulty in placing a pacemaker with her prosthetic tricuspid valve, a leadless pacer could be used but AV synchrony would be desirable. 4. Valvular heart disease: She has significant valvular heart disease and may need further surgery, however that may not be directly related to her AV block, her atrial tachycardia may be a reentrant rhythm around an atriotomy scar. I recommended that she stay in the hospital overnight, her management is quite c omplex including the treatment of her atrial arrhythmia, her AV block and her valvular heart disease. I would like to defer management to Dr. Anand as she is not in any immediate danger. History of Present Illness Reason for Consultation: Bradycardia Attending Physician: Juliano Cha MD History of Present Illness This is a 55-year-old woman who is followed through [facility], most recently by Dr. Anand I believe. She has a complex background history including I believe 3 cardiac surgeries starting with mitral valve repair in 2008, followed by repeat mitral valve surgery in 2016 which I believe was a mechanical mitral valve replacement and tricuspid valve repair with ligation of the left atrial appendage. She developed severe tricuspid regurgitation and had tricuspid valve replacement in 2019. I believe she has no significant coronary artery disease. At the time of her surgeries her left ventricular function was normal. She has evidently been told that her mitral valve may need to be repl aced but I am not sure where that stands. A recent echocardiogram (which is referenced in an office note but the report is not in our chart) was done in mid December 2024 shows a severely narrowed left ventricular outflow tract and evidently the mitral valve replacement is obstructing the left ventricular outflow tract. She has a high subaortic flow gradient. The aortic valve was felt to be functioning adequately and she had significant diastolic dysfunction. It was noted in December 2024 that she had significant shortness of breath and she had a cardiac MRI I believe in November 2024 (I do not have that report but I see a reference to it) with similar findings to the echocardiogram noted above. Due to her structural heart issues it was recommended that she be referred to [facility], I am not sure where that stands but she believes her records were sent but as far she knows no surgery is planned. She was on amiodarone 200 mg daily in December 2024, I am not sure why she was on it but it sounds as though it was started after her cardiac surgery. She reports having her heart rate suddenly go from 80-160 and she was placed on amiodarone, that may have been a number of years ago. The more recent plan was to wean her off of amiodarone, I believe due to an elevated TSH. This was done sometime in the December to March 2025 timeframe although she cannot give me the specifics. She is also maintained on warfarin for her valve and tells me that for the most part her INR is stable but she may have had a somewhat reduced INR during treatment with steroids recently. She presented to the emergency room on August 06, 2025 with symptoms of palpitations and feelings of weakness and lightheadedness. From her description she was having a somewhat increased heart rate as well as palpitations starting when she took steroids which she believes was about 3 weeks ago although her thinks it might have been longer. She tells me that her heart rate was typically at 60 bpm before that and then suddenly jumped up to 80 bpm but it was not until very recently (1 or 2 days) that she began to notice periods of weakness and slow heart rate which prompted her visit to the emergency room. She has had no presyncope or syncope. Electrocardiograms that I have to review go back to January 03, 2025 where she had sinus rhythm with a left bundle branch block and a QRS duration of about 152 ms, this pattern was similar in January 2025 and April 02, 2025. On presentation here August 06, 2025 her electrocardiogram was computer interpreted as sinus rhythm but I believe represented an atrial tachycardia which became obvious on subsequent electrocardiographic monitoring and appears to be at a rate of around 100 bpm with variable AV conduction including 2-1 resulting in a regular rhythm. I do not know the duration of this arrhythmia but suspect it might date back to when her heart rate increased around the time of starting steroids (although I do not know that that had anything to do with it). On telemetry monitoring she periodically developed what appears to be complete or high-grade AV block with a junctional rhythm of about 40 bpm. She was on atenolol 75 mg daily on presentation, her last dose was in the evening of August 05, 2025. This was held on admission so I believe was not given on August 06, 2025. Today she feels quite well. Her heart rate has stabilized at just over 80 bpm, she has felt no palpitations but has not been active and has not been walking around. She has no shortness of breath or chest discomfort. Allergies Allergy/AdvReac Type Severity Reaction Status Date / Time levofloxacin [From Levaquin] Allergy Severe Anaphylaxis Verified 05/10/25 16:22 heparin AdvReac Severe HIGH Verified 05/10/25 16:22 DOSES---COMA doxycycline AdvReac Intermediate CAUSED Verified 05/10/25 16:22 ULCER TO BLEED tizanidine AdvReac Intermediate HALLUCINATI Verified 05/10/25 16:22 ONS fentanyl AdvReac Unknown "DID NOT Verified 05/10/25 16:22 WORK" midazolam [From Versed] AdvReac Unknown "DID NOT Verified 05/10/25 16:22 WORK" ketorolac [From Toradol] AdvReac Abdominal Verified 05/10/25 16:22 Pain Home Medications Medication Instructions Recorded Confirmed Type alprazolam 1 mg tablet 1 mg PO BID PRN Anxiety 04/02/25 08/06/25 History atenolol 50 mg tablet 75 mg PO DAILY 04/02/25 08/06/25 History estradiol 2 mg tablet 2 mg PO DAILY 04/02/25 08/06/25 History furosemide 20 mg tablet 20 mg PO DAILY 04/02/25 08/06/25 History losartan 25 mg tablet 0 mg PO DAILY 04/02/25 08/06/25 History meclizine 25 mg tablet 25 mg PO BID PRN Dizziness Or 04/02/25 08/06/25 History Vertigo pantoprazole 40 mg tablet,delayed 40 mg PO DAILY 04/02/25 08/06/25 History release ranolazine 500 mg tablet,extended 500 mg PO BID 04/02/25 08/06/25 History release,12 hr spironolactone 25 mg tablet 50 mg PO DAILY 04/02/25 08/06/25 History warfarin 2.5 mg tablet 2.5 mg PO HS 04/02/25 08/06/25 History zolpidem 5 mg tablet 5 mg PO HS 04/02/25 08/06/25 History naloxone 4 mg/actuation nasal 1 spray intranasal ONCE #2 ea 04/09/25 08/06/25 Rx spray (Narcan) ferrous sulfate 325 mg (65 mg 325 mg PO DAILY 05/10/25 08/06/25 History iron) tablet,delayed release multivitamin 1 tab PO DAILY 05/10/25 08/06/25 History promethazine 25 mg tablet 25 mg PO TID PRN nausea and 05/10/25 08/06/25 Rx vomiting #9 tabs levothyroxine 25 mcg tablet 25 mcg PO DAILY 08/06/25 08/06/25 History (Euthyrox) Patient History Medical History Encounter for pre-operative examination Restrictive lung disease Pulmonary hypertension PTSD (post-traumatic stress disorder) HTN (hypertension) Anxiety Nonalcoholic fatty liver disease Diaphragmatic paralysis Chronic insomnia Surgical History History of incision and drainage (04/05/25) Right Jaw Incision and Drainage - Jamie Villafana DMD Extraction Tooth #28 - Jamie Villafana DMD H/O mitral valve repair H/O tricuspid valve replacement H/O mitral valve replacement Social History Smoking Status: Never smoker Hx Alcohol Use: Yes Alcohol type: other Hx Substance Use: No Preferred Language: [place] Communication Ability: Effective Chilling Hood Operator Required: No Beliefs That Will Affect Care: None Current Living Situation: Spouse and Family current occupation: Disability Feels Safe at Home: Yes Safety Concerns: Feels Safe At This Time Assistive Devices: None Review of Systems Review of Systems: All systems reviewed & are unremarkable except as noted in HPI & below Physical Exam Physical Exam: Constitutional: Alert, cooperative and in no distress. HEENT: Unremarkable Neck: No jugular venous distention, carotid pulses are normal and equal bilaterally without bruits. Pulmonary: Clear to auscultation bilaterally. Cardiac: Regular rhythm with a grade 2 or 6 holosystolic murmur at the apex, good prosthetic valve sounds, no gallop or rub. Abdomen: Soft, nontender with normal bowel sounds. Extremities: No edema. Neurologic: No focal findings. Skin: No rash, ecchymoses or petechiae. Results & Data Vital Signs (Past 12 Hours) Vital Signs Temp Pulse Resp BP Pulse Ox O2 Del Method 08/07/25 07:46 36.5 C 86 18 113/74 96 Room Air 08/07/25 02:56 36.4 C L 85 16 102/71 95 Room Air 08/06/25 23:17 36.7 C 85 18 120/74 98 Room Air Diagnostic Findings Cardiac Enzymes 08/06/25 Range/Units 12:38 AST 17 (13-39) U/L Troponin I High Sens 7.9 (0-14) pg/ml B-Natriuretic Peptide 116 H (0-100) pg/ml Coagulation 08/06/25 08/07/25 Range/Units 12:38 07:27 PT 26.3 H 26.6 H (9.0-12.0) Seconds B-Natriuretic Peptide 116 H (0-100) pg/ml CBC 08/06/25 08/07/25 Range/Units 12:38 07:27 WBC 5.78 4.90 (4.8-10.8) K/ul RBC 3.55 L 3.47 L (4.20-5.40) M/uL Hgb 11.0 L 10.7 L (12.0-16.0) g/dl Hct 33.1 L 32.6 L (37.0-47.0) % Plt Count 291 255 (130-400) K/uL Neut # (Auto) 3.21 2.04 (1.40-6.50) K/uL Lymph # (Auto) 1.89 2.26 (1.20-3.40) K/uL [place] # (Auto) 0.43 0.36 (0.11-0.59) K/uL Eos # (Auto) 0.18 0.18 (0.00-0.50) K/uL Baso # (Auto) 0.05 0.04 (0.00-0.20) K/uL Comprehensive Metabolic Panel 08/06/25 08/07/25 Range/Units 12:38 07:27 Sodium 138 138 (136-145) mmol/L Potassium 4.3 4.1 (3.5-5.1) mmol/L Chloride 106 106 (98-107) mmol/L Carbon Dioxide 27 27 (21-32) mmol/L BUN 17 15 (6-23) mg/dl Creatinine 0.84 0.86 (0.6-1.2) mg/dl Glucose 100 H 105 H (70-99(Fasting)) mg/dl Calcium 8.9 8.8 (8.6-10.3) mg/dl AST 17 (13-39) U/L ALT 12 (7-52) U/L Alkaline Phosphatase 121 H (34-104) U/L Total Protein 6.8 (6.0-8.3) gm/dl Albumin 3.7 (3.4-5.0) gm/dl Intake and Output 08/06/25 08/07/25 08/07/25 22:59 06:59 14:59 Other: Other Intake Source NPO # Unmeasured Voids 1 Weight 75 kg Weight Measurement Method Built in [facility] Telemetry: Initially an atrial tachycardia/atrial flutter with an atrial rate of about 160 bpm with variable AV conduction and periods of junctional rhythm at around 40 bpm. At about 1348 on August 06, 2025 her rate changed to the low 80 bpm range but was very stable with no real heart rate variation since. This appears to be atrial flutter with 2-1 AV conduction. PG Care Time/CCT Total # of Minutes Spent Total Time Spent with Patient: Total time spent is greater than 50% in coordination of care (as documented) at patient's floor/unit and/or counseling patient: Coding Level of Care Code 63945 INT INP/OBS CARE 3/75MIN Diagnoses Lightheadedness R42 Atrial tachycardia I47.19 AVB (atrioventricular block) I44.30 Valvular heart disease I38
[2025-08-07] MEDS: MAGNESIUM SULFATE / D5W 1 GM/100 ML BAG IV ONE (13:57)
[2025-08-07] MEDS: ACETAMINOPHEN 1,000 MG/100 ML VIAL IV STA (22:03)
[2025-08-08 08:14] LABS: INR 3.2 (0.9-1.1); Prothrombin Time 31.5 Seconds (9.0-12.0)
[2025-08-08] MEDS: ACETAMINOPHEN 1,000 MG/100 ML VIAL IV STA ×2 (08:26→17:55)
--- NOTE | 2025-08-08 09:30 | Cardiology Progress Note ---
Date of Service August 08, 2025 Assessment & Plan (1) Lightheadedness: (2) Atrial tachycardia: (3) AVB (atrioventricular block): (4) Valvular heart disease: Plan 1. Lightheadedness and fatigue: This is almost certainly due to a junctional rhythm at 40 bpm. That has resolved with resolution of the slow heart rate, I believe due to metabolism of her beta-heriberto although the patient and her tell me it was due to receiving magnesium. 2. Atrial tachycardia/atrial flutter: This is likely a reentrant atrial rhythm, therefore technically might be an atrial flutter, possibly around an atriotomy scar and quite consistent since presenting here. She has developed this arrhythmia sometime over the last several months, it was not present in March 2025 on electrocardiography. She may have had an electrocardiogram done in May at an office visit but I have not seen that. By her description I suspect it might have started when she started her steroids which might have been about 3 weeks ago although I do not know precisely and I believe has continued since then. It is still present but the AV conduction is variable, currently without amiodarone or beta-blockade it is 2-1. It sounds as though the amiodarone may have been started for a similar arrhythmia in the past. She is no longer on any AV trell blocking medications which is potentially worrisome since she could conduct one-to-one perhaps with activity. This would possibly be amenable to ablation although it can be difficult. 3. AV block: She presents with some type of AV block which could be high-grade AV block or complete heart block with a junctional escape rhythm. The junctional escape rhythm appears to be stable, it has the same morphology as her sinus rhythm suggesting that the block is AV trell not His-Purkinje in nature. As such it may not be related to her prior valve surgery although that is conceivable. It may be of recent onset, based on symptoms, although the atrial tachycardia could potentially exacerbate this finding. She is on atenolol, I had recommended discontinuing that on presentation and she is no longer on any AV trell blocking medications and it has resolved based on telemetry consistent with metabolism of the drug. At this point I do not think I would put in a pacemaker although if medications are needed to control her atrial arrhythmia we may be forced to do that. There is a potential difficulty in placing a pacemaker with her prosthetic tricuspid valve, a leadless pacer could be used but AV synchrony would be desirable. 4. Valvular heart disease: She has significant valvular heart disease and may need further surgery, however that may not be directly related to her AV block, her atrial tachycardia may be a reentrant rhythm around an atriotomy scar. I recommended that she stay in the hospital overnight, her management is quite complex including the treatment of her atrial arrhythmia, her AV block and her valvular heart disease. I would like to defer management to Dr. Anand as she is not in any immediate danger. Admission and Anticipated Discharge Date Admission Date: August 06, 2025 Physical Exam Physical Exam: Constitutional: Alert, cooperative and in no distress. She is supine in her bed. HEENT: Unremarkable Neck: No jugular venous distention, carotid pulses are normal and equal bilaterally without bruits. Pulmonary: Clear to auscultation bilaterally. Cardiac: Regular rhythm with a grade 2 or 6 holosystolic murmur at the apex, good prosthetic valve sounds, no gallop or rub. Abdomen: Soft, nontender with normal bowel sounds. Extremities: No edema. Neurologic: No focal findings. Skin: No rash, ecchymoses or petechiae. Results & Data Vital Signs (Past 12 Hours) Vital Signs Temp Pulse Resp BP Pulse Ox O2 Del Method 08/08/25 07:49 36.3 C L 83 18 154/82 H 97 Room Air 08/08/25 02:36 36.6 C 81 18 106/68 96 Room Air 08/07/25 23:01 36.7 C 86 18 108/71 94 Room Air Laboratory Results Coagulation 08/08/25 Range/Units 07:06 PT 31.5 H (9.0-12.0) Seconds Intake and Output 08/07/25 08/08/25 08/08/25 22:59 06:59 14:59 Intake Total 420 / 720 320 / 320 Balance 420 / 720 320 / 320 Intake: IV 100 / 200 100 / 100 Acetaminophen 1,000 mg In 100 100 / 100 100 / 100 ml @ 400 mls/hr IV NOW STA Rx#: [id number] Oral 320 / 520 220 / 220 Other: Weight 75.1 kg Diagnostic Findings Telemetry: She is currently in sinus rhythm with intact AV conduction and a heart rate of around 80, at around 11 PM last night it appears that she recovered sinus function based on the fact that her sinus rate increased from the pacing rate of 60 at that time and she has not had significant pacing since. PG Care Time/CCT Total # of Minutes Spent Total Time Spent with Patient: Total time spent is greater than 50% in coordination of care (as documented) at patient's floor/unit and/or counseling patient: Coding Diagnoses Lightheadedness R42 Atrial tachycardia I47.19 AVB (atrioventricular block) I44.30 Valvular heart disease I38
--- NOTE | 2025-08-08 09:39 | Cardiology Progress Note ---
Date of Service August 08, 2025 Assessment & Plan (1) Atrial tachycardia: (2) Valvular heart disease: (3) Symptomatic bradycardia: Plan Ms. Hancock appears to be in atrial flutter. She noticed a higher heart rate over the last month or so. Fortunately she is anticoagulated and per chart review has been therapeutic. She does sense her heart rate although she is not feeling fluttering or short of breath. She came off of amiodarone a couple of months ago. She had her beta heriberto held at admission for her episodes of bradycardia and has not had any further episodes of significantly slow rates. Her hypothyroidism is likely contributing to her arrhythmia and bradycardia as well; she has refused treatment thus far. She should resume levothyroxine. Her QT is prolonged. She should stop the Ranexa which she was prescribed prior to establishing with [facility] for unclear reasons. She does not have significant coronary disease. Her electrolytes are normal on yesterday's labs. Avoid QT prolonging agents. We will have her see [facility] EP in the near future on an outpatient basis to see if she would be a candidate for ablation. She should stay in patient tonight for cardioversion with Dr. Downing in the am. NPO after MN. Admission and Anticipated Discharge Date Admission Date: August 06, 2025 Supervising Physician Co-Signing Physician Notes Plan on Cardioversion in am. Discussed with patient concern over hypothyroidism and that she is refusing synthroid. Will reassess post cardioversion. Subjective Ms. Hancock is feeling ok this morning except that she is aware of her heart beating and can hear it in her ears when she stands. No sob or chest pain. No edema. She continues to be in flutter on the monitor. Review of Systems Review of Systems: All systems reviewed & are unremarkable except as noted in HPI & below Physical Exam Constitutional: WD/WN, vitals as above Respiratory: normal respiratory effort, lungs clear to auscultation Cardiovascular: RRR, no murmur, no edema Skin: no rashes, warm and dry Neurologic: moves all extremities and awake Psychiatric: A+Ox3, euthymic affect Results & Data Vital Signs (Past 12 Hours) Vital Signs Temp Pulse Resp BP Pulse Ox O2 Del Method 08/08/25 07:49 36.3 C L 83 18 154/82 H 97 Room Air 08/08/25 02:36 36.6 C 81 18 106/68 96 Room Air 08/07/25 23:01 36.7 C 86 18 108/71 94 Room Air
--- NOTE | 2025-08-08 14:03 | Electrocardiogram Report ---
Test Reason : Blood Pressure : */* mmHG Vent. Rate : 80 BPM Atrial Rate : 80 BPM P-R Int : 120 ms QRS Dur : 134 ms QT Int : 508 ms P-R-T Axes : 0 -10 156 degrees QTcB Int : 585 ms Normal sinus rhythm Left bundle branch block Abnormal ECG When compared with ECG of 05-Apr-2025 03:14, [place] interval has decreased Nonspecific T wave abnormality now evident in Inferior leads T wave inversion now evident in Lateral leads QT has lengthened Confirmed by Sergei Stone ([id number]) on 08/08/2025 2:02:47 PM Referred By: REFERRED SELF Confirmed By: Sergei Stone
--- NOTE | 2025-08-08 14:08 | Electrocardiogram Report ---
Test Reason : Blood Pressure : */* mmHG Vent. Rate : 73 BPM Atrial Rate : 79 BPM P-R Int : * ms QRS Dur : 140 ms QT Int : 474 ms P-R-T Axes : * -11 180 degrees QTcB Int : 522 ms Atrial flutter with variable A-V block Left bundle branch block Abnormal ECG When compared with ECG of 06-Aug-2025 11:30, (unconfirmed) No significant change Confirmed by Sergei Stone ([id number]) on 08/08/2025 2:08:33 PM Referred By: REFERRED SELF Confirmed By: Sergei Stone
--- NOTE | 2025-08-08 14:09 | Electrocardiogram Report ---
Test Reason : Blood Pressure : */* mmHG Vent. Rate : 60 BPM Atrial Rate : 67 BPM P-R Int : * ms QRS Dur : 136 ms QT Int : 504 ms P-R-T Axes : * -11 216 degrees QTcB Int : 504 ms Atrial flutter with variable A-V block Left bundle branch block Abnormal ECG When compared with ECG of 06-Aug-2025 11:42, (unconfirmed) No significant change Confirmed by Sergei Stone ([id number]) on 08/08/2025 2:09:34 PM Referred By: Confirmed By: Sergei Stone
[2025-08-08] MEDS: BACLOFEN 10 MG TAB PO ONE (17:55)
--- NOTE | 2025-08-08 19:21 | Hospitalist Progress Note ---
"Date of Service August 08, 2025 Assessment & Plan (1) Atrial flutter: (2) Symptomatic bradycardia: (3) Valvular heart disease: (4) Anemia: (5) Left arm pain: (6) H/O tricuspid valve replacement: (7) H/O mitral valve replacement: (8) Hypothyroidism: (9) Anxiety: Plan 55yo female with valvular heart disease - s/p MV replacement and TV replacement (4 total surgeries on her valves over the years - most recent early 2024), chronic coumadin use for mechanical valve, anxiety, and restrictive lung disease who presented on 08/06 after developing symptomatic bradycardia. #Symptomatic bradycardia / junctional rhythm / atrial flutter - -atenolol has been d/c -appreciate consultation by Dr Stone over the weekend and Dr Downing today from [facility] -there had been discussion about pacemaker placement due to the abnormal destiny- arrhythmias however pacemaker insertion, due to her prior extensive CT surgeries for her valves, would be technically difficult -pacemaker insertion deferred for now -with respect to the atrial flutter cardioversion is planned for tomorrow am by Dr Downing -she is fully and chronically anticoagulated thus BOBBY cardioversion not necessary -it is thought that d/c of amiodarone several months ago likely led to d evelopment of a.flutter -INR in am -NPO after MN tonight #chest pain - -patient has had multiple L heart caths all of which have been normal / free of CAD -she is fully anticoagulated - PE is highly unlikely -cardiac MRI in late 2023 showed a normal aortic root - aortic dissection unlikely -GERD? -coronary vasospasm? -musculoskeletal? -anxiety? -combo of factors? -EKG checked this afternoon - a.flutter with LBBB -troponin negative -gave IV tylenol and baclofen (was having lots of muscle pain/spasm from her left shoulder/left arm) -reassured her that although she is feeling prominent palpitations her tele has not changed in the last 24 hours #Valvular Heart Disease - -Hx of mitral and tricuspid valve replacements now on Warfarin (TV is bioprosthetic, MV is mechanical) -Goal INR range: 2.5-3.5 -Continue warfarin daily -daily PT/INR #anemia - -check Fe studies, B12, folate #HFpEF - -compensated -last echo - 04/25/2025 - EF 60-65%, grade 1 diastolic dysfunction, mild LVH; TVR and MVR functioning well -continue spironolactone, Lasix, losartan, and ranolazine -atenolol stopped due to recent severe bradycardia with rates in the upper 30s #Hypothyroidism - -TSH elevated at 24 on arrival, low normal free T4 -Thought to be secondary to recent amiodarone use leading to thyroid dysfunction -patient declines starting thyroid replacement -counseled that much of her fatigue, weakness, feeling poorly for months may indeed be due to hypothyroidism -she has f/u with endocrinology in October of this year - wants to wait until then before starting replacement therapy #Insomnia | PTSD - -Continue zolpidem HS #left shoulder and left arm pain - -prior imaging of cervical spine showed moderate DJD at lower levels -had x-rays of left shoulder in June -was placed on steroids for left shoulder - was ortho thinking bursitis? -she did not like how the steroids made her feel -may have combination of cervical radiculopathy along with intrinsic shoulder issues -f/u ortho as outpatient -gave tylenol w/ baclofen today for her symptoms care d/w Dr Downing appreciate her assistance Admission and Anticipated Discharge Date Admission Date: August 06, 2025 Subjective tele - a.flutter, rates <100 (80s typically) no other dysrhythmia seen no AV block, no junctional, no pauses during my visit (late afternoon) her was present at bedside she complained of palpitations, chest discomfort, right arm pain she states that at one point she looked at her chest and felt that her left breast literally jumped also mentions that for 3 months she has had fairly constant pain that radiates from the top of the left back (top of L scapula/bottom of left neck) down into the left upper arm and extends down into the forearm the left hand then gets numb IV tylenol here has helped considerably she saw [facility] for this was told she had shoulder issues Review of Systems Review of Systems: cv - see HPI; no edema pulm - no dyspnea or BUCKNER GI - no N/V gen - fatigue Physical Exam Physical Exam: gen - lying comfortably in bed, NAD, anxious neck - mild restriction in rotation with passive ROM; no JVD heart - irregular, s1 s2, mechanical valve closure sound, no murmur lungs - CTA b/l abd - soft NT ND BS+ chest - midline vertical scar; tender to palpation along the left side of the scar ext - no edema of legs, pulses 2+ b/l musculo - with passive ROM of left shoulder she has significant hesitation to allow me to do this, c/o pain in the L shoulder psych - anxious; a/o x 3 Results & Data Results & Data Vital Signs (Past 12 Hours) Vital Signs Temp Pulse Pulse Resp BP Pulse Ox O2 Del Method 08/08/25 15:39 36.6 C 86 19 119/75 95 Room Air 08/08/25 13:49 83 08/08/25 11:52 36.7 C 83 18 112/74 92 Room Air 08/08/25 07:49 36.3 C L 83 18 154/82 H 97 Room Air Laboratory Results Laboratory Results - last 24 hr 08/08/25 07:06 PT 31.5 H INR 3.2 H PG Care Time/CCT Total # of Minutes Spent Total Time Spent with Patient: Total time spent is greater than 50% in coordination of care (as documented) at patient's floor/unit and/or counseling patient: Coding Level of Care Code 18445 SUB INP/OBS CARE 3/50MIN Diagnoses Atrial flutter I48.92 Symptomatic bradycardia R00.1 Valvular heart disease I38 Anemia D64.9 Left arm pain M79.602 H/O tricuspid valve replacement Z95.2 H/O mitral valve replacement Z95.2 Hypothyroidism E03.9 Anxiety F41.9"
[2025-08-09 07:13] LABS: Anion Gap 6.0 (3-11); Blood Urea Nitrogen 16.0 mg/dl (6-23); Calcium 8.8 mg/dl (8.6-10.3); Carbon Dioxide 25.0 mmol/L (21-32); Chloride 108.0 mmol/L (98-107); Creatinine Clr Calc Pharmacy 82.8 ml/min; Glucose 121.0 mg/dl (70-99(Fasting)); Iron 58.0 mcg/dl (35-150); Potassium 3.8 mmol/L (3.5-5.1); Sodium 139.0 mmol/L (136-145); Total Iron Binding Cap Calc 368.0 mcg/dl (250-450); Transferrin 263.0 mg/dl (200-360); Transferrin (FE) Percent Satur 16.0 % (15-50)
[2025-08-09 07:31] LABS: Ferritin 25.7 ng/ml (8-388)
--- NOTE | 2025-08-09 07:31 | Anesthesiology Consultation ---
Date of Service August 09, 2025 Assessment & Plan ASA ASA3 Proposed Anesthesia Anesthesia Type: MAC Risk / Benefits Reviewed With: PT / POA / Parent / Guardian, Accepts Plan and Informed Consent Obtained History Surgery Operation Date: 08/09/25 07:30 Proposed Procedures p Cardioversion [place] [employer] Operator w/Anesthesia - Livier Downing, Height/Weight Height: 5 ft 4.5 in Weight: 75 kg Allergies Allergy/AdvReac Type Severity Reaction Status Date / Time levofloxacin [From Levaquin] Allergy Severe Anaphylaxis Verified 05/10/25 16:22 heparin AdvReac Severe HIGH Verified 05/10/25 16:22 DOSES---COMA doxycycline AdvReac Intermediate CAUSED Verified 05/10/25 16:22 ULCER TO BLEED tizanidine AdvReac Intermediate HALLUCINATI Verified 05/10/25 16:22 ONS fentanyl AdvReac Unknown "DID NOT Verified 05/10/25 16:22 WORK" midazolam [From Versed] AdvReac Unknown "DID NOT Verified 05/10/25 16:22 WORK" ketorolac [From Toradol] AdvReac Abdominal Verified 05/10/25 16:22 Pain Medications Home Medications Medication Instructions Recorded Confirmed Last Taken alprazolam 1 mg tablet 1 mg PO BID PRN Anxiety 04/02/25 08/06/25 05/10/25 atenolol 50 mg tablet 75 mg PO DAILY 04/02/25 08/06/25 05/09/25 estradiol 2 mg tablet 2 mg PO DAILY 04/02/25 08/06/25 05/09/25 furosemide 20 mg tablet 20 mg PO DAILY 04/02/25 08/06/25 05/10/25 losartan 25 mg tablet 0 mg PO DAILY 04/02/25 08/06/25 05/09/25 meclizine 25 mg tablet 25 mg PO BID PRN Dizziness Or 04/02/25 08/06/25 05/10/25 Vertigo pantoprazole 40 mg tablet,delayed 40 mg PO DAILY 04/02/25 08/06/25 05/10/25 release ranolazine 500 mg tablet,extended 500 mg PO BID 04/02/25 08/06/25 05/10/25 release,12 hr spironolactone 25 mg tablet 50 mg PO DAILY 04/02/25 08/06/25 05/10/25 warfarin 2.5 mg tablet 2.5 mg PO HS 04/02/25 08/06/25 05/09/25 zolpidem 5 mg tablet 5 mg PO HS 04/02/25 08/06/25 05/09/25 naloxone 4 mg/actuation nasal 1 spray intranasal ONCE #2 ea 04/09/25 08/06/25 Unknown spray (Narcan) ferrous sulfate 325 mg (65 mg 325 mg PO DAILY 05/10/25 08/06/25 05/10/25 iron) tablet,delayed release multivitamin 1 tab PO DAILY 05/10/25 08/06/25 05/09/25 promethazine 25 mg tablet 25 mg PO TID PRN nausea and 05/10/25 08/06/25 Unknown vomiting #9 tabs levothyroxine 25 mcg tablet 25 mcg PO DAILY 08/06/25 08/06/25 Unknown (Euthyrox) Active Medications Generic Name Dose Route Start Last Admin Trade Name Marcoq PRN Reason Stop Dose Admin Acetaminophen 650 mg 08/06/25 17:31 08/07/25 09:03 Acetaminophen 325 Mg Tab PO 09/05/25 17:30 650 mg Q4H PRN Administration Pain or Fever Alprazolam 1 mg 08/06/25 21:00 08/08/25 21:27 Alprazolam 0.5 Mg Tablet PO 09/05/25 20:59 1 mg BID PRN Administration Anxiety Estradiol 2 mg 08/07/25 09:00 08/08/25 08:29 Estradiol 1 Mg Tab PO 09/06/25 08:59 2 mg DAILY CAIN Administration Ferrous Sulfate 325 mg 08/07/25 09:00 08/08/25 08:37 Ferrous Sulfate 325 Mg Tab PO 09/06/25 08:59 Not Given DAILY CAIN Furosemide 20 mg 08/07/25 09:00 08/08/25 08:37 Furosemide 20 Mg Tab PO 09/06/25 08:59 Not Given DAILY CAIN Levothyroxine Sodium 25 mcg 08/07/25 06:30 08/09/25 06:30 Levothyroxine Sodium 25 Mcg Tablet PO 09/06/25 06:29 Not Given DAILYBB CAIN Losartan Potassium 25 mg 08/07/25 09:00 08/08/25 08:27 Losartan Potassium 25 Mg Tab PO 09/06/25 08:59 25 mg DAILY CAIN Administration Pantoprazole Sodium 40 mg 08/07/25 09:00 08/08/25 08:28 Pantoprazole 40 Mg Tab PO 09/06/25 08:59 40 mg DAILY CAIN Administration Spironolactone 50 mg 08/07/25 09:00 08/08/25 08:28 Spironolactone 25 Mg Tab PO 09/06/25 08:59 50 mg DAILY CAIN Administration Warfarin Sodium 2.5 mg 08/06/25 21:00 08/08/25 16:13 Warfarin Sod 2.5 Mg Tab PO 09/05/25 20:59 2.5 mg DAILY@1600 CAIN Administration Zolpidem Tartrate 5 mg 08/06/25 21:00 08/08/25 21:27 Zolpidem Tartrate 5 Mg Tab PO 09/05/25 20:59 5 mg HS CAIN Administration NPO Date Last Intake of Fluids: 08/08/25 Time Last Intake of Fluids: 23:59 Date Last Intake of Solids: 08/08/25 Time Last Intake of Solids: 23:59 Past Medical History Medical History Encounter for pre-operative examination Restrictive lung disease Pulmonary hypertension PTSD (post-traumatic stress disorder) HTN (hypertension) Anxiety Nonalcoholic fatty liver disease Diaphragmatic paralysis Chronic insomnia Exercise / Class Metabolic Activity II 4-5 Yardwork/Stairs/Walk up hill Past Surgical History Surgical History History of incision and drainage (04/05/25) Right Jaw Incision and Drainage - Jamie Villafana DMD Extraction Tooth #28 - Jamie Villafana DMD H/O mitral valve repair H/O tricuspid valve replacement H/O mitral valve replacement Past Anesthesia History No Hx of Anesthesia Complications and No Family Hx of Anesthesia Complications History of PONV No Hx of PONV and No Hx of Motion Sickness Social History Smoking Status: Never smoker Hx Alcohol Use: Yes Alcohol type: other alcohol intake frequency: holidays/special occasions only Hx Substance Use: No substance use type: does not use Last Used Substance Other:: CBD Gel Caps Physical Exam Vital Signs Last Vital Signs Temp 36.8 C 08/09/25 02:32 Pulse 118 H 08/09/25 07:14 Resp 14 08/09/25 07:14 BP 118/89 08/09/25 07:14 Pulse Ox 95 08/09/25 07:14 O2 Del Method Room Air 08/09/25 07:14 Constitutional no acute distress ENMT Mouth: + small oral opening; no dentition abnormality Thyromental Distance: > or= 3.5 Finger Breadths Mallampati Class: III Neck normal visual inspection Respiratory normal respiratory effort; no respiratory distress Auscultation: lungs clear to auscultation bilaterally Cardiovascular Rate/Rhythm: regular rate and regular rhythm Heart Sounds: no murmur Musculoskeletal Spine: normal cervical ROM Psychiatric Orientation: alert and oriented x 3 Testing Laboratory Results 08/07/25 07:27 08/09/25 06:14 PT 31.5 Seconds (9.0-12.0) H 08/08/25 07:06 INR 3.2 (0.9-1.1) H 08/08/25 07:06 Urine Color Dark Yellow 08/06/25 13:45 Urine Appearance Cloudy (Clear) A 08/06/25 13:45 Urine pH 6.0 (4.5-7.5) 08/06/25 13:45 Ur Specific [place] 1.027 (1.000-1.030) 08/06/25 13:45 Urine Protein Trace (Negative) H 08/06/25 13:45 Urine Glucose (UA) Negative (Negative) 08/06/25 13:45 Urine Ketones Trace (Negative) H 08/06/25 13:45 Urine Nitrite Negative (Negative) 08/06/25 13:45 Ur Leukocyte Esterase 1+ (Negative) H 08/06/25 13:45 Urine WBC (Auto) 6-10 /hpf (0-5) H 08/06/25 13:45 Urine RBC (Auto) 0-2 /hpf (0-2) 08/06/25 13:45 U Hyaline Cast (Auto) 0-2 /lpf (0-2) 08/06/25 13:45 U Epithel Cells (Auto) >20 /hpf (0-2) H 08/06/25 13:45 Urine Bacteria (Auto) 4+ (None Seen) H 08/06/25 13:45 Electrocardiogram atrial flutter Day of Procedure Evaluation. Date of Surgery August 09, 2025 Height/Weight Height: 5 ft 4.5 in Weight: 75 kg Vital Signs Last Vital Signs Temp 36.8 C 08/09/25 02:32 Pulse 118 H 08/09/25 07:14 Resp 14 08/09/25 07:14 BP 118/89 08/09/25 07:14 Pulse Ox 95 08/09/25 07:14 O2 Del Method Room Air 08/09/25 07:14 Allergies Allergy/AdvReac Type Severity Reaction Status Date / Time levofloxacin [From Levaquin] Allergy Severe Anaphylaxis Verified 05/10/25 16:22 heparin AdvReac Severe HIGH Verified 05/10/25 16:22 DOSES---COMA doxycycline AdvReac Intermediate CAUSED Verified 05/10/25 16:22 ULCER TO BLEED tizanidine AdvReac Intermediate HALLUCINATI Verified 05/10/25 16:22 ONS fentanyl AdvReac Unknown "DID NOT Verified 05/10/25 16:22 WORK" midazolam [From Versed] AdvReac Unknown "DID NOT Verified 05/10/25 16:22 WORK" ketorolac [From Toradol] AdvReac Abdominal Verified 05/10/25 16:22 Pain Medications Home Medications Medication Instructions Recorded Confirmed Last Taken alprazolam 1 mg tablet 1 mg PO BID PRN Anxiety 04/02/25 08/06/25 05/10/25 atenolol 50 mg tablet 75 mg PO DAILY 04/02/25 08/06/25 05/09/25 estradiol 2 mg tablet 2 mg PO DAILY 04/02/25 08/06/25 05/09/25 furosemide 20 mg tablet 20 mg PO DAILY 04/02/25 08/06/25 05/10/25 losartan 25 mg tablet 0 mg PO DAILY 04/02/25 08/06/25 05/09/25 meclizine 25 mg tablet 25 mg PO BID PRN Dizziness Or 04/02/25 08/06/25 05/10/25 Vertigo pantoprazole 40 mg tablet,delayed 40 mg PO DAILY 04/02/25 08/06/25 05/10/25 release ranolazine 500 mg tablet,extended 500 mg PO BID 04/02/25 08/06/25 05/10/25 release,12 hr spironolactone 25 mg tablet 50 mg PO DAILY 04/02/25 08/06/25 05/10/25 warfarin 2.5 mg tablet 2.5 mg PO HS 04/02/25 08/06/25 05/09/25 zolpidem 5 mg tablet 5 mg PO HS 04/02/25 08/06/25 05/09/25 naloxone 4 mg/actuation nasal 1 spray intranasal ONCE #2 ea 04/09/25 08/06/25 Unknown spray (Narcan) ferrous sulfate 325 mg (65 mg 325 mg PO DAILY 05/10/25 08/06/25 05/10/25 iron) tablet,delayed release multivitamin 1 tab PO DAILY 05/10/25 08/06/25 05/09/25 promethazine 25 mg tablet 25 mg PO TID PRN nausea and 05/10/25 08/06/25 Unknown vomiting #9 tabs levothyroxine 25 mcg tablet 25 mcg PO DAILY 08/06/25 08/06/25 Unknown (Euthyrox) Active Medications Generic Name Dose Route Start Last Admin Trade Name Marcoq PRN Reason Stop Dose Admin Acetaminophen 650 mg 08/06/25 17:31 08/07/25 09:03 Acetaminophen 325 Mg Tab PO 09/05/25 17:30 650 mg Q4H PRN Administration Pain or Fever Alprazolam 1 mg 08/06/25 21:00 08/08/25 21:27 Alprazolam 0.5 Mg Tablet PO 09/05/25 20:59 1 mg BID PRN Administration Anxiety Estradiol 2 mg 08/07/25 09:00 08/08/25 08:29 Estradiol 1 Mg Tab PO 09/06/25 08:59 2 mg DAILY CAIN Administration Ferrous Sulfate 325 mg 08/07/25 09:00 08/08/25 08:37 Ferrous Sulfate 325 Mg Tab PO 09/06/25 08:59 Not Given DAILY CAIN Furosemide 20 mg 08/07/25 09:00 08/08/25 08:37 Furosemide 20 Mg Tab PO 09/06/25 08:59 Not Given DAILY CAIN Levothyroxine Sodium 25 mcg 08/07/25 06:30 08/09/25 06:30 Levothyroxine Sodium 25 Mcg Tablet PO 09/06/25 06:29 Not Given DAILYBB CAIN Losartan Potassium 25 mg 08/07/25 09:00 08/08/25 08:27 Losartan Potassium 25 Mg Tab PO 09/06/25 08:59 25 mg DAILY CAIN Administration Pantoprazole Sodium 40 mg 08/07/25 09:00 08/08/25 08:28 Pantoprazole 40 Mg Tab PO 09/06/25 08:59 40 mg DAILY CAIN Administration Spironolactone 50 mg 08/07/25 09:00 08/08/25 08:28 Spironolactone 25 Mg Tab PO 09/06/25 08:59 50 mg DAILY CAIN Administration Warfarin Sodium 2.5 mg 08/06/25 21:00 08/08/25 16:13 Warfarin Sod 2.5 Mg Tab PO 09/05/25 20:59 2.5 mg DAILY@1600 CAIN Administration Zolpidem Tartrate 5 mg 08/06/25 21:00 08/08/25 21:27 Zolpidem Tartrate 5 Mg Tab PO 09/05/25 20:59 5 mg HS CAIN Administration Past Anesthesia History No Hx of Anesthesia Complications and No Family Hx of Anesthesia Complications History of PONV No Hx of PONV and No Hx of Motion Sickness NPO Date Last Intake of Fluids: 08/08/25 Time Last Intake of Fluids: 23:59 Date Last Intake of Solids: 08/08/25 Time Last Intake of Solids: 23:59 Home Medications Home Medications Medication Instructions Recorded Confirmed Last Taken alprazolam 1 mg tablet 1 mg PO BID PRN Anxiety 04/02/25 08/06/25 05/10/25 atenolol 50 mg tablet 75 mg PO DAILY 04/02/25 08/06/25 05/09/25 estradiol 2 mg tablet 2 mg PO DAILY 04/02/25 08/06/25 05/09/25 furosemide 20 mg tablet 20 mg PO DAILY 04/02/25 08/06/25 05/10/25 losartan 25 mg tablet 0 mg PO DAILY 04/02/25 08/06/25 05/09/25 meclizine 25 mg tablet 25 mg PO BID PRN Dizziness Or 04/02/25 08/06/25 05/10/25 Vertigo pantoprazole 40 mg tablet,delayed 40 mg PO DAILY 04/02/25 08/06/25 05/10/25 release ranolazine 500 mg tablet,extended 500 mg PO BID 04/02/25 08/06/25 05/10/25 release,12 hr spironolactone 25 mg tablet 50 mg PO DAILY 04/02/25 08/06/25 05/10/25 warfarin 2.5 mg tablet 2.5 mg PO HS 05/09/1708/06/25 05/09/25 zolpidem 5 mg tablet 5 mg PO HS 04/02/25 08/06/25 05/09/25 naloxone 4 mg/actuation nasal 1 spray intranasal ONCE #2 ea 04/09/25 08/06/25 Unknown spray (Narcan) ferrous sulfate 325 mg (65 mg 325 mg PO DAILY 05/10/25 08/06/25 05/10/25 iron) tablet,delayed release multivitamin 1 tab PO DAILY 05/10/25 08/06/25 05/09/25 promethazine 25 mg tablet 25 mg PO TID PRN nausea and 05/10/25 08/06/25 Unknown vomiting #9 tabs levothyroxine 25 mcg tablet 25 mcg PO DAILY 08/06/25 08/06/25 Unknown (Euthyrox) Active Medications Generic Name Dose Route Start Last Admin Trade Name Freq PRN Reason Stop Dose Admin Acetaminophen 650 mg 08/06/25 17:31 08/07/25 09:03 Acetaminophen 325 Mg Tab PO 09/05/25 17:30 650 mg Q4H PRN Administration Pain or Fever Alprazolam 1 mg 08/06/25 21:00 08/08/25 21:27 Alprazolam 0.5 Mg Tablet PO 09/05/25 20:59 1 mg BID PRN Administration Anxiety Estradiol 2 mg 08/07/25 09:00 08/08/25 08:29 Estradiol 1 Mg Tab PO 09/06/25 08:59 2 mg DAILY CAIN Administration Ferrous Sulfate 325 mg 08/07/25 09:00 08/08/25 08:37 Ferrous Sulfate 325 Mg Tab PO 09/06/25 08:59 Not Given DAILY CAIN Furosemide 20 mg 08/07/25 09:00 08/08/25 08:37 Furosemide 20 Mg Tab PO 09/06/25 08:59 Not Given DAILY CAIN Levothyroxine Sodium 25 mcg 08/07/25 06:30 08/09/25 06:30 Levothyroxine Sodium 25 Mcg Tablet PO 09/06/25 06:29 Not Given DAILYBB CAIN Losartan Potassium 25 mg 08/07/25 09:00 08/08/25 08:27 Losartan Potassium 25 Mg Tab PO 09/06/25 08:59 25 mg DAILY CAIN Administration Pantoprazole Sodium 40 mg 08/07/25 09:00 08/08/25 08:28 Pantoprazole 40 Mg Tab PO 09/06/25 08:59 40 mg DAILY CAIN Administration Spironolactone 50 mg 08/07/25 09:00 08/08/25 08:28 Spironolactone 25 Mg Tab PO 09/06/25 08:59 50 mg DAILY CAIN Administration Warfarin Sodium 2.5 mg 08/06/25 21:00 08/08/25 16:13 Warfarin Sod 2.5 Mg Tab PO 09/05/25 20:59 2.5 mg DAILY@1600 CAIN Administration Zolpidem Tartrate 5 mg 08/06/25 21:00 08/08/25 21:27 Zolpidem Tartrate 5 Mg Tab PO 09/05/25 20:59 5 mg HS CAIN Administration Exercise / Class Metabolic Activity Metabolic Activity: II 4-5 Yardwork/Stairs/Walk up hill Physical Exam Constitutional: no acute distress Mouth: + small oral opening; no dentition abnormality Thyromental Distance: > or= 3.5 Finger Breadths Mallampati Class: III Neck: + visual inspection normal Respiratory: + respiratory effort normal and + clear to auscultation bilaterally; no respiratory distress Cardiovascular: + regular rate and + regular rhythm; no murmur Musculoskeletal: no limited cervical ROM Psychiatric: + alert and + oriented x 3 ASA ASA3 Proposed Anesthesia Proposed Anesthesia: MAC Risk / Benefits Reviewed With: PT / POA / Parent / Guardian, Accepts Plan and Informed Consent Obtained
[2025-08-09 07:33] LABS: Folate (Folic Acid),Ser orPlas 20.15 ng/ml (>5.38)
[2025-08-09 07:34] LABS: Vitamin B12 145.0 pg/ml (180-914)
[2025-08-09 07:35] LABS: INR 4.0 (0.9-1.1); Prothrombin Time 38.1 Seconds (9.0-12.0)
--- NOTE | 2025-08-09 07:46 | Cardioversion ---
Date of Service August 09, 2025 Electrical Cardioversion Rpt Electrical Cardioversion Report After informed consent was obtained, in an NPO state under conscious sedation by anesthesiology, synchronous DC cardioversion performed successfully at 200 Joules x 1. NSR with 1st AV block and LBBB was achieved. INR has been therapeutic during admission and for at least 1 month prior to admission. Patient tolerated the procedure well. Post cardioversion ECG ordered.
--- NOTE | 2025-08-09 07:50 | Electrocardiogram Report ---
Test Reason : Blood Pressure : */* mmHG Vent. Rate : 83 BPM Atrial Rate : 83 BPM P-R Int : * ms QRS Dur : 138 ms QT Int : 462 ms P-R-T Axes : * -8 166 degrees QTcB Int : 542 ms 2:1 Atrial Flutter Left bundle branch block Abnormal ECG When compared with ECG of 06-Aug-2025 11:45, (unconfirmed) Aflutter has replaced Afib Confirmed by Livier Downing ([id number]) on 08/09/2025 7:49:56 AM Referred By: REFERRED SELF Confirmed By: Livier Downing
--- NOTE | 2025-08-09 07:51 | Electrocardiogram Report ---
Test Reason : Blood Pressure : */* mmHG Vent. Rate : 87 BPM Atrial Rate : * BPM P-R Int : * ms QRS Dur : 154 ms QT Int : 474 ms P-R-T Axes : * -13 122 degrees QTcB Int : 570 ms 2:1 Atrial Flutter Left bundle branch block Abnormal ECG When compared with ECG of 07-Aug-2025 13:51, (unconfirmed) There is no significant change Confirmed by Livier Downing (Zeeshan) on 08/09/2025 7:50:47 AM Referred By: REFERRED SELF Confirmed By: Livier Downing
--- NOTE | 2025-08-09 07:57 | Cardiology Progress Note ---
Date of Service August 09, 2025 Assessment & Plan (1) Atrial flutter: (2) LBBB (left bundle branch block): (3) Valvular heart disease: (4) Symptomatic bradycardia: Plan Will monitor her Heart rate and rhythm for today. Potentially can DC home later today. Will set up MCOT monitor as outpatient. Will arrange for EP evaluation. Suspect that her onset of Afib coincides with washout of amiodarone which was dc about 2 1/2 months ago. Ideally I would like her hypothyroid treated TSH was 35-now down to 24 since off amio, but patient is refusing. Wants to see endo (not scheduled until October however) I'll follow up as outpatient. Admission and Anticipated Discharge Date Admission Date: August 06, 2025 Subjective tele - a.flutter, rates <100 (80s typically) 2:1 flutter with underlying LBBB Cardioversion performed successfully this am--NSR achieved Review of prior heart caths shows NO CAD. Cardiac MR for 08/2024 shows normal thoracic aorta. Review of Systems Review of Systems: All systems reviewed & are unremarkable except as noted in HPI & below Physical Exam Physical Exam: no change Results & Data Vital Signs (Past 12 Hours) Vital Signs Temp Pulse Pulse Pulse Resp BP Pulse Ox 08/09/25 07:45 61 18 105/59 L 94 08/09/25 07:14 118 H 14 118/89 95 08/09/25 02:32 36.8 C 83 18 122/81 96 08/08/25 23:15 85 08/08/25 22:30 36.7 C 84 18 126/83 97 08/08/25 20:24 O2 Del Method 08/09/25 07:45 Room Air 08/09/25 07:14 Room Air 08/09/25 02:32 Room Air 08/08/25 23:15 08/08/25 22:30 Room Air 08/08/25 20:24 Room Air Laboratory Results Abnormal lab results 08/08/25 08/09/25 Range/Units 07:06 06:14 PT 31.5 H 38.1 H (9.0-12.0) Seconds INR 3.2 H 4.0 H (0.9-1.1) Chloride 108 H (98-107) mmol/L BUN/Creatinine Ratio 20.8 H (10-20) Glucose 121 H (70-99(Fasting)) mg/dl Vitamin B12 145 L (180-914) pg/ml Medications Administered Current Inpatient Medications Acetaminophen (Acetaminophen 325 Mg Tab) 650 mg PO Q4H PRN PRN Reason: Pain or Fever Stop: 09/05/25 17:30 Last Admin: 08/07/25 09:03 Dose: 650 mg Alprazolam (Alprazolam 0.5 Mg Tablet) 1 mg PO BID PRN PRN Reason: Anxiety Stop: 09/05/25 20:59 Last Admin: 08/08/25 21:27 Dose: 1 mg Atropine Sulfate (Atropine So4 1 Mg/Ml 1ml Vial) 1 mg IV Q5M PRN PRN Reason: Symptomatic bradycardia Estradiol (Estradiol 1 Mg Tab) 2 mg PO DAILY CAIN Stop: 09/06/25 08:59 Last Admin: 08/08/25 08:29 Dose: 2 mg Ferrous Sulfate (Ferrous Sulfate 325 Mg Tab) 325 mg PO DAILY CAIN Stop: 09/06/25 08:59 Last Admin: 08/08/25 08:37 Dose: Not Given Furosemide (Furosemide 20 Mg Tab) 20 mg PO DAILY CAIN Stop: 09/06/25 08:59 Last Admin: 08/08/25 08:37 Dose: Not Given Levothyroxine Sodium (Levothyroxine Sodium 25 Mcg Tablet) 25 mcg PO DAILYBB PENDING SALE TO [facility] Stop: 09/06/25 06:29 Last Admin: 08/09/25 06:30 Dose: Not Given Losartan Potassium (Losartan Potassium 25 Mg Tab) 25 mg PO DAILY CAIN Stop: 09/06/25 08:59 Last Admin: 08/08/25 08:27 Dose: 25 mg Meclizine HCl (Meclizine Hcl 25 Mg Tab) 25 mg PO BID PRN PRN Reason: Dizziness Or Vertigo Stop: 09/05/25 17:30 Melatonin (Melatonin 3 Mg Tab) 3 mg PO HS PRN PRN Reason: Sleep Stop: 09/05/25 17:30 Pantoprazole Sodium (Pantoprazole 40 Mg Tab) 40 mg PO DAILY CAIN Stop: 09/06/25 08:59 Last Admin: 08/08/25 08:28 Dose: 40 mg Promethazine HCl (Promethazine Hcl 25 Mg Tab) 25 mg PO TID PRN PRN Reason: nausea and vomiting Stop: 09/05/25 17:30 Spironolactone (Spironolactone 25 Mg Tab) 50 mg PO DAILY PENDING SALE TO [facility] Stop: 09/06/25 08:59 Last Admin: 08/08/25 08:28 Dose: 50 mg Warfarin Sodium (Warfarin Sod 2.5 Mg Tab) 2.5 mg PO DAILY@1600 PENDING SALE TO [facility] Stop: 09/05/25 20:59 Last Admin: 08/08/25 16:13 Dose: 2.5 mg Zolpidem Tartrate (Zolpidem Tartrate 5 Mg Tab) 5 mg PO HS PENDING SALE TO [facility] Stop: 09/05/25 20:59 Last Admin: 08/08/25 21:27 Dose: 5 mg
--- NOTE | 2025-08-09 08:13 | Anesthesiology Progress Note ---
Date of Service August 09, 2025 Anesthesia Post Procedure Vital Signs Vital Signs: Temp Pulse Pulse Pulse Resp BP Pulse Ox 08/09/25 08:00 58 L 18 85/48 L 94 08/09/25 07:45 61 18 105/59 L 94 08/09/25 07:14 118 H 14 118/89 95 08/09/25 02:32 36.8 C 83 18 122/81 96 08/08/25 23:15 85 08/08/25 22:30 36.7 C 84 18 126/83 97 08/08/25 20:24 08/08/25 19:29 36.8 C 83 18 122/81 96 08/08/25 15:39 36.6 C 86 19 119/75 95 08/08/25 13:49 83 08/08/25 11:52 36.7 C 83 18 112/74 92 O2 Del Method 08/09/25 08:00 Room Air 08/09/25 07:45 Room Air 08/09/25 07:14 Room Air 08/09/25 02:32 Room Air 08/08/25 23:15 08/08/25 22:30 Room Air 08/08/25 20:24 Room Air 08/08/25 19:29 Room Air 08/08/25 15:39 Room Air 08/08/25 13:49 08/08/25 11:52 Room Air Pain Intensity Left Arm: Pain Intensity: 6 Transfer of Care Handoff Completed per policy Notes Mental Status: alert / awake / arousable and participated in evaluation Nausea / Vomiting: adequately controlled Pain: adequately controlled Airway Patency, RR, SpO2: stable & adequate BP & HR: stable & adequate Hydration State: stable & adequate Anesthetic Complications: no major complications apparent and Pt Satisfied with anesthetic care
[2025-08-09] MEDS: LIDOCAINE 2% 2 ML VIAL/AMP(20MG/ML) INFIL ONE (11:59)
[2025-08-09] MEDS: PROPOFOL IV EMULSION 10 MG/ML 20 ML VIAL IV ONE (11:59)
[2025-08-09 12:13] VITALS: BP 113/62; PULSE 67; RESP 18; TEMP 97.5; O2SAT 95
[2025-08-09] MEDS: ACETAMINOPHEN 1,000 MG/100 ML VIAL IV STA (13:08)
[2025-08-09] MEDS: diphenhydrAMINE 50 MG/ML VIAL IV STA (13:09)
[2025-08-09] MEDS: CYANOCOBALAMIN (B-12) 500 MCG TABLET PO SCH (13:31)
[2025-08-09] MEDS: IRON SUCROSE 200 MG in SODIUM CHLORIDE 0.9% 100 ML IV ONE (13:31)
--- NOTE | 2025-08-09 17:24 | Discharge Summary ---
Discharge Summary Date of Service August 09, 2025 Principal Dx & Hospital Course #1 = Principal Diagnosis (1) Atrial flutter: (2) Symptomatic bradycardia: (3) Valvular heart disease: (4) Anemia: (5) Left arm pain: (6) H/O tricuspid valve replacement: (7) H/O mitral valve replacement: (8) Hypothyroidism: (9) Anxiety: Plan 55yo female with valvular heart disease - s/p MV replacement and TV replacement (4 total surgeries on her valves over the years - most recent early 2024), chronic coumadin use for mechanical valve, anxiety, and restrictive lung disease who presented on 08/06 after developing symptomatic bradycardia. #Symptomatic bradycardia / junctional rhythm / atrial flutter - -atenolol has been d/c -appreciate consultation by Dr Stone over the weekend and Dr Downing today fro [facility] -there had been discussion about pacemaker placement due to the abnormal destiny- arrhythmias however pacemaker insertion, due to her prior extensive CT surgeries for her valves, would be technically difficult -pacemaker insertion deferred for now -with respect to the atrial flutter cardioversion is planned for tomorrow am by Dr Downing -she is fully and chronically anticoagulated thus BOBBY cardioversion not necessary -it is thought that d/c of amiodarone several months ago likely led to development of a.flutter -INR in am -NPO after MN tonight #chest pain - -patient has had multiple L heart caths all of which have been normal / free of CAD -she is fully anticoagulated - PE is highly unlikely -cardiac MRI in late 2023 showed a normal aortic root - aortic dissection unlikely -GERD? -coronary vasospasm? -musculoskeletal? -anxiety? -combo of factors? -EKG checked this afternoon - a.flutter with LBBB -troponin negative -gave IV tylenol and baclofen (was having lots of muscle pain/spasm from her left shoulder/left arm) -reassured her that although she is feeling prominent palpitations her tele has not changed in the last 24 hours #Valvular Heart Disease - -Hx of mitral and tricuspid valve replacements now on Warfarin (TV is bioprosthetic, MV is mechanical) -Goal INR range: 2.5-3.5 -Continue warfarin daily -daily PT/INR #anemia - -check Fe studies, B12, folate #HFpEF - -compensated -last echo - 04/25/2025 - EF 60-65%, grade 1 diastolic dysfunction, mild LVH; TVR and MVR functioning well -continue spironolactone, Lasix, losartan, and ranolazine -atenolol stopped due to recent severe bradycardia with rates in the upper 30s #Hypothyroidism - -TSH elevated at 24 on arrival, low normal free T4 -Thought to be secondary to recent amiodarone use leading to thyroid dysfunction -patient declines starting thyroid replacement -counseled that much of her fatigue, weakness, feeling poorly for months may indeed be due to hypothyroidism -she has f/u with endocrinology in October of this year - wants to wait until then before starting replacement therapy #Insomnia | PTSD - -Continue zolpidem HS #left shoulder and left arm pain - -prior imaging of cervical spine showed moderate DJD at lower levels -had x-rays of left shoulder in June -was placed on steroids for left shoulder - was ortho thinking bursitis? -she did not like how the steroids made her feel -may have combination of cervical radiculopathy along with intrinsic shoulder issues -f/u ortho as outpatient -gave tylenol w/ baclofen today for her symptoms care d/w Dr Downing appreciate her assistance Admission HPI Per Admitting Provider Mrs. Hancock is a 55-year-old female with PMH of valvular heart disease (on w arfarin), pulmonary hypertension, CHF, restrictive lung disease, NAFLD, insomnia, and PTSD. Extensive cardiac history including valvular surgeries completed in [place] and most recently in November 2024 at the [facility]. She presented on 08/06 after feeling intermittent chest palpitations followed by lightheadedness while at rest around 0900 this morning. When she checked her home pulse ox, it was reportedly 38 bpm. While she has had intermittent episodes of decreased energy over the past 2 weeks, this is the lowest her heart rate has been. Patient denies prior history of [place] or diabetes. While she denies history of stroke, she does report history of "small hemorrhages" in her brain secondary to her heart. Patient did not take her regular morning medications today. The only recent change in medication is that she was started on a Medrol Dosepak 2 weeks ago for her left shoulder pain. She believes that the Medrol Dosepak is the primary cause of her symptoms, as it has messed up her INR, and her heart rate has felt abnormal ever since starting it. No sick contacts to her knowledge. No rashes or tick bites to her knowledge. Patient follows with Dr. Downing ([facility]) as an outpatient. Patient's vitals are stable at time of admission. ED course: Magnesium sulfate 1 g IV x 1 Xanax 1 mg p.o. ROS: Patient endorses night sweats, intermittent chest palpitations, decreased energy, SOB (patient reports she has "no energy" to breathing when her heart rate is low), dry cough, intermittent numbness and tingling in the left hand, and left-sided shoulder pain radiating down to the hand. Patient denies fevers chest pain, chest palpitations, N/V/D, burning with urination, blood in your stool, or changes in urinary/bowel habits. Discharge Exam gen - lying comfortably in bed, NAD, anxious neck - mild restriction in rotation with passive ROM; no JVD heart - irregular, s1 s2, mechanical valve closure sound, no murmur lungs - CTA b/l abd - soft NT ND BS+ chest - midline vertical scar; tender to palpation along the left side of the scar ext - no edema of legs, pulses 2+ b/l musculo - with passive ROM of left shoulder she has significant hesitation to allow me to do this, c/o pain in the L shoulder psych - anxious; a/o x 3 Discharge Plan Discharge Items Patient Disposition: Home - Self-Care Reason For Visit: SYMPTOMATIC BRADYCARDIA Discharge Diagnosis: 1. bradycardia (slow heart rate) and transient heart block - resolved 2. atrial flutter - cardioversion by Dr Downing - back in normal sinus rhythm 3. valvular heart disease with mitral valve & tricuspid valve replacements 4. chronic coumadin use - discharge INR 4 5. vitamin B12 deficiency 6. iron deficiency 7. hypothyroidism 8. left shoulder pain 9. cervical spine arthritis as seen on prior neck imaging Activity: As commented below Activity Comment: gradually increase activity over the next few days as tolerated Non-emergency contact: Primary Care Provider and Racing Car Driver Call non-emergency contact if: you have any medication questions and your symptoms worsen Follow-up/Referrals: Livier Downing DO [Physician] - (Dr Downing's office will be contacting you for a follow-up appointment) Annette Sales PA-C [Physician [employer]] - 08/12/25 3:30 pm Diet: Heart Healthy Addtl Attending Provider Instructions: Ms Hancock, You were hospitalized due to bradycardia (slow heart rate). This quickly resolved after admission to the hospital. Your heart rates harvinder into the 80s and the underlying heart rhythm was atrial flutter. You were seen by cardiology and they recommended cardioversion. On 08/09 Dr Downing performed cardioversion and your heart rhythm returned to norm al sinus rhythm. In addition to the above we found that you have vitamin B12 deficiency and iron deficiency. You received a dose of IV Venofer (IV iron). You may need 1-2 more doses of the IV iron. Your family doctor can follow your iron and B12 levels. Of note - your TSH level (thyroid level) was 24.6. We were able to move up your endocrinology appointment for you. Please keep your appointment with orthopedics as scheduled later this week. For muscle pain/muscle spasm you can take the baclofen - 5mg every 8 hours as needed. You can continue tylenol as needed for aches/pains as well. It is safe to take up to 2000mg in a 24-hour period even with liver disease. Please take [id number] vitamin B12 -- you can find this in any grocery store or pharmacy. Take 1000mcg once daily for about 6 months. Your INR today was 4. Please skip your coumadin today, but plan to resume tomorrow at your usual dosing. Finally, stop the following medicines - -Ranexa -Atenolol -iron supplements; you received IV iron, and I would simply recommend additional IV iron as outpatient Follow-up - see separate section Return to [facility] if - -you have severe dizziness or lightheadedness -your heart rate is consistently slow (less than 50-55) or too fast consistently (over 100) -you have worsening shortness of breath -any other concerns It was our pleasure to care for you! -Juliano Cha Pending Studies at Discharge: No Stand-Alone Forms: My [facility], Smoking Cessation Medications and DC Order Prescriptions: New baclofen 5 mg tablet 5 mg PO Q8H PRN (Reason: muscle spasm/muscle pain) Qty: 14 0RF cyanocobalamin (vitamin B-12) 1,000 mcg tablet 1,000 mcg PO DAILY Qty: 90 1RF Rx Instructions: take for about 6 months; purchase [id number] Continued alprazolam 1 mg tablet 1 mg PO BID PRN (Reason: Anxiety) spironolactone 25 mg tablet 50 mg PO DAILY meclizine 25 mg tablet 25 mg PO BID PRN (Reason: Dizziness Or Vertigo) Patient Comments: 08/06- otc unable to verify pantoprazole 40 mg tablet,delayed release (DR/EC) 40 mg PO DAILY estradiol 2 mg tablet 2 mg PO DAILY zolpidem 5 mg tablet 5 mg PO HS furosemide 20 mg tablet 20 mg PO DAILY naloxone [Narcan] 4 mg/actuation spray,non-aerosol 1 spray intranasal ONCE Qty: 2 0RF multivitamin Tablet 1 tab PO DAILY Patient Comments: 08/06- otc unable to verify promethazine 25 mg tablet 25 mg PO TID PRN (Reason: nausea and vomiting) Qty: 9 0RF Changed losartan 25 mg tablet 25 mg PO DAILY Qty: 0 0RF Patient Comments: 08/06-Last filled 03/27 30 day supply Held warfarin 2.5 mg tablet 2.5 mg PO HS Hold Instructions: Resume on 08/10/25. levothyroxine [Euthyrox] 25 mcg tablet 25 mcg PO DAILY Hold Instructions: you can hold until you see endocrinology Discontinued atenolol 50 mg tablet 75 mg PO DAILY ranolazine 500 mg tablet extended release 12 hr 500 mg PO BID ferrous sulfate 325 mg (65 mg iron) Tablet,Delayed Release (Dr/Ec) 325 mg PO DAILY Patient Comments: 08/06- otc unable to verify Discharge Orders: Discharge Order (Routine); Ordered 08/09/25 Ordered By: Juliano Claire/Other Patient Handouts: Understanding Atrial Flutter Admission Data Admit Date/Time: 08/06/25 15:22 Attending Provider: Juliano Cha Admit Provider: Juliano Cha Primary Care Provider: Casie Link Other Providers: Juliano Cha; Sergei Stone Hospital Stay Data Consultations 08/06/25 15:05 ED Decision to Admit Stat 08/06/25 15:15 Consult Cardiology Routine Procedures Performed Operation Date: 08/09/25 07:30 Actual Procedures p Cardioversion Freight Shipping Agent w/Anesthesia - Livier Downing, DO Pending Results Patient Have Any Pending Studies at Discharge: No Discharge Instructions Given to Patient (Per Discharging Provider) Ms Hancock, Morteza were hospitalized due to bradycardia (slow heart rate). This quickly resolved after admission to the hospital. Your heart rates harvinder into the 80s and the underlying heart rhythm was atrial flutter. You were seen by cardiology and they recommended cardioversion. On 08/09 Dr Downing performed cardioversion and your heart rhythm returned to normal sinus rhythm. In addition to the above we found that you have vitamin B12 deficiency and iron deficiency. You received a dose of IV Venofer (IV iron). You may need 1-2 more doses of the IV iron. Your family doctor can follow your iron and B12 levels. Of note - your TSH level (thyroid level) was 24.6. We were able to move up your endocrinology appointment for you. Please keep your appointment with orthopedics as scheduled later this week. For muscle pain/muscle spasm you can take the baclofen - 5mg every 8 hours as needed. You can continue tylenol as needed for aches/pains as well. It is safe to take up to 2000mg in a 24-hour period even with liver disease. Please take [id number] vitamin B12 -- you can find this in any grocery store or pharmacy. Take 1000mcg once daily for about 6 months. Your INR today was 4. Please skip your coumadin today, but plan to resume tomorrow at your usual dosing. Finally, stop the following medicines - -Ranexa -Atenolol -iron supplements; you received IV iron, and I would simply recommend addit ional IV iron as outpatient Follow-up - see separate section Return to [facility] if - -you have severe dizziness or lightheadedness -your heart rate is consistently slow (less than 50-55) or too fast consistently (over 100) -you have worsening shortness of breath -any other concerns It was our pleasure to care for you! -Juliano Cha Coding Diagnoses Atrial flutter I48.92 Symptomatic bradycardia R00.1 Valvular heart disease I38 Anemia D64.9 Left arm pain M79.602 H/O tricuspid valve replacement Z95.2 H/O mitral valve replacement Z95.2 Hypothyroidism E03.9 Anxiety F41.9
--- NOTE | 2025-08-11 15:59 | Electrocardiogram Report ---
Test Reason : Blood Pressure : */* mmHG Vent. Rate : 59 BPM Atrial Rate : 59 BPM P-R Int : 226 ms QRS Dur : 138 ms QT Int : 532 ms P-R-T Axes : 79 -9 120 degrees QTcB Int : 526 ms Sinus bradycardia with 1st degree A-V block Left bundle branch block Abnormal ECG When compared with ECG of 08-Aug-2025 16:21, HR has decreased Confirmed by Sergei Stone ([id number]) on 08/11/2025 3:59:11 PM Referred By: REFERRED SELF Confirmed By: Sergei Stone
== END 2025-08-09 18:14 | disposition home or self-care (01) | DRG 309 ==
LOC: ED 11:21 → 2S 15:22 → SUATTDRO 15:22 → 2S 16:02
DX: I50.32 Chronic diastolic (congestive) heart failure; Z66 Do not resuscitate; Z88.8 Allergy status to other drugs, medicaments and biological substances; F43.10 Post-traumatic stress disorder, unspecified; E53.8 Deficiency of other specified B group vitamins; K76.0 Fatty (change of) liver, not elsewhere classified; Z79.899 Other long term (current) drug therapy; I44.7 Left bundle-branch block, unspecified; M79.602 Pain in left arm; Z88.5 Allergy status to narcotic agent; Z79.890 Hormone replacement therapy; M47.892 Other spondylosis, cervical region; D50.9 Iron deficiency anemia, unspecified; R82.71 Bacteriuria; Z79.01 Long term (current) use of anticoagulants; I38 Endocarditis, valve unspecified; I27.20 Pulmonary hypertension, unspecified; F51.04 Psychophysiologic insomnia; F41.9 Anxiety disorder, unspecified; I47.19 Other supraventricular tachycardia; I11.0 Hypertensive heart disease with heart failure; I48.92 Unspecified atrial flutter; E03.9 Hypothyroidism, unspecified; I44.30 Unspecified atrioventricular block; Z95.2 Presence of prosthetic heart valve; M25.512 Pain in left shoulder